=== PATIENT | male | born 1960 | race African-American/Black ===

== ENCOUNTER 2017-02-12 04:35 | Inpatient (IN) | payer SELFPAY ==
[~2017-02-12] VITALS: Ht 175.3 cm; Wt 118.0 kg
[2017-02-12] VITALS (17 sets, daily range): BP systolic 109–241; BP diastolic 59–124; PULSE 40–66; RESP 14–22; TEMP 97.6–98.2; O2SAT 93–100
[~2017-02-12 04:35] MED LIST: CIAL5TAB PO; LOSA25TA PO; NAPR500T PO; OMPR20CCR PO; PRED50 PO
[2017-02-12] MEDS ORDERED: ONDANSETRON HCL 4 MG/2 ML VIAL IV PUSH ONE (05:00)
[2017-02-12] MEDS ORDERED: SODIUM CHLORIDE 0.9% FLUSH 10 ML FLUSH IVF PRN (05:00)
[2017-02-12] MEDS ORDERED: MORPHINE SULFATE 4 MG/ML INJ IV PUSH ONE ×2 (05:00→06:00)
[2017-02-12] MEDS ORDERED: NITROGLYCERIN 2% OINT 1 GM PACKET TOP ONE (05:00)
[2017-02-12] MEDS: METOPROLOL TARTRATE 5 MG/5 ML VIAL IVS SCH ×3 (05:11→05:40)
--- NOTE | 2017-02-12 05:14 | PD ---
HPI . Chest pain Chief Complaint: Chest Pain Time Seen by Provider: 04:50 Travel History International Travel<30 days: No Contact w/Intl Traveler<30days: No Traveled to known affect area: No History of Present Illness HPI This patient presents with chief complaint of chest pain. Onset was 4 AM. He states it feels like torch in his chest which is radiating to his left arm. He states that it is associated with shortness of breath, nausea and dizziness. He states that it is a constant pain with no modifying factors. He initially rated his pain as 10/10. The patient reported that he had taken 2 BC powders at about 1 AM for a headache. The chest pain started 3 hours later. He reports a history of coronary artery disease and states that the pain in his chest is similar to the pain that he had in the past with coronary artery disease. PFSH Past Medical History Blood Disorders: No Heart Rhythm Problems: Yes (irregular beat ) Cancer: No Cardiac Catheterization: Yes Cardiovascular Problems: Yes (cath with stents 2013) High Cholesterol: No Chemotherapy: No Chest Pain: Yes (december 2013) Congestive Heart Failure: No Diabetes: No Diminished Hearing: No Endocrine: No Genitourinary: No Hypertension: Yes Immune Disorder: No Musculoskeletal: No Neurologic: No Psychiatric: No Reproductive: No Respiratory: No Myocardial Infarction: No Radiation Therapy: No Thyroid Disease: No PNEUMOCCOCAL Vaccine (Year): 2 ?: Not Past Surgical History Coronary Artery Bypass Graft: No Coronary Stent: Yes (x2 december 2013) Social History Alcohol Use: No (NONE SINCE MAY) Tobacco Use: No Substance Use: No Allergies-Medications (Allergen,Severity, Reaction): Coded Allergies: No Known Allergies (Verified , 02/12/17) Reported Meds & Prescriptions Reported Meds & Active Scripts Active Reported Viagra (Sildenafil Citrate) 25 Mg Tab 25 Mg PO DAILY PRN Losartan (Losartan Potassium) 100 Mg Tab 100 Mg PO DAILY Prilosec (Omeprazole Magnesium) 20 Mg Tab 1 Tab PO DAILY PRN Review of Systems Except as stated in HPI: all other systems reviewed are Neg HENT: Positive: Lightheadedness Cardiovascular: Positive: Chest Pain or Discomfort Respiratory: Positive: Shortness of Breath Gastrointestinal: Positive: Nausea Physical Exam Narrative GENERAL: Patient is tearful. SKIN: warm/dry. HEAD: Normocephalic. Atraumatic. EYES: Pupils equal and round. No scleral icterus. No injection or drainage. ENT: No nasal bleeding or discharge. Mucous membranes pink and moist. NECK: Trachea midline. Full range of motion without pain.. CARDIOVASCULAR: Regular rate and rhythm. Systolic ejection murmur. RESPIRATORY: No accessory muscle use. Clear to auscultation. Breath sounds equal bilaterally. GASTROINTESTINAL: Abdomen soft. Nontender. Bowel sounds present. Nondistended. MUSCULOSKELETAL: No obvious deformities. NEUROLOGICAL: Awake and alert. No obvious cranial nerve deficits. Motor grossly within normal limits. Normal speech. PSYCHIATRIC: Appropriate mood and affect; insight and judgment normal. Data Data Last Documented VS Vital Signs Date Time Temp Pulse Resp B/P (MAP) Pulse Ox O2 Delivery O2 Flow Rate FiO2 02/12/17 06:00 66 16 184/88 (120) 98 Room Air 02/12/17 04:37 98.2 Orders Orders Basic Metabolic Panel (Bmp) (02/12/17 04:51) Ckmb (Isoenzyme) Profile (02/12/17 04:51) Complete Blood Count With Diff (02/12/17 04:51) Magnesium (Mg) (02/12/17 04:51) Prothrombin Time / Inr (Pt) (02/12/17 04:51) Act Partial Throm Time (Ptt) (02/12/17 04:51) Troponin I (02/12/17 04:51) Chest, Single Ap (02/12/17 04:51) Ecg Monitoring (02/12/17 04:51) Iv Access Insert/Monitor (02/12/17 04:51) Oximetry (02/12/17 04:51) Morphine Inj (Morphine Inj) (02/12/17 05:00) Nitroglycerin 2% Oint (Nitroglycerin 2% (02/12/17 05:00) Sodium Chloride 0.9% Flush (Ns Flush) (02/12/17 05:00) Metoprolol Tartrate Inj (Lopressor Inj) (02/12/17 05:00) Ondansetron Inj (Zofran Inj) (02/12/17 05:00) Lipase (02/12/17 05:00) Morphine Inj (Morphine Inj) (02/12/17 06:00) CKMB (02/12/17 05:00) CKMB% (02/12/17 05:00) Admit Order (Ed Use Only) (02/12/17 06:34) Labs Laboratory Tests Test 02/12/17 05:00 White Blood Count 9.0 TH/MM3 Red Blood Count 4.73 MIL/MM3 Hemoglobin 15.3 GM/DL Hematocrit 44.4 % Mean Corpuscular Volume 93.9 FL Mean Corpuscular Hemoglobin 32.4 PG Mean Corpuscular Hemoglobin Concent 34.5 % Red Cell Distribution Width 13.5 % Platelet Count 237 TH/MM3 Mean Platelet Volume 7.7 FL Neutrophils (%) (Auto) 33.5 % Lymphocytes (%) (Auto) 50.1 % Monocytes (%) (Auto) 12.3 % Eosinophils (%) (Auto) 2.8 % Basophils (%) (Auto) 1.3 % Neutrophils # (Auto) 3.0 TH/MM3 Lymphocytes # (Auto) 4.5 TH/MM3 Monocytes # (Auto) 1.1 TH/MM3 Eosinophils # (Auto) 0.3 TH/MM3 Basophils # (Auto) 0.1 TH/MM3 CBC Comment DIFF FINAL Differential Comment Prothrombin Time 10.3 SEC Prothromb Time International Ratio 0.9 RATIO Activated Partial Thromboplast Time 23.7 SEC Blood Urea Nitrogen 9 MG/DL Creatinine 1.30 MG/DL Random Glucose 108 MG/DL Calcium Level 9.5 MG/DL Magnesium Level 2.2 MG/DL Sodium Level 137 MEQ/L Potassium Level 3.6 MEQ/L Chloride Level 104 MEQ/L Carbon Dioxide Level 26.4 MEQ/L Anion Gap 7 MEQ/L Estimat Glomerular Filtration Rate 69 ML/MIN Total Creatine Kinase 221 U/L Creatine Kinase MB 2.2 NG/ML Troponin I LESS THAN 0.02 NG/ML Lipase 469 U/L MDM Medical Decision Making Medical Screen Exam Complete: Yes Emergency Medical Condition: Yes Medical Record Reviewed: Yes (this patient is followed by the [facility]. He has a history of hypertension and coronary artery disease. He is status post stents to the RCA and LCx. He also has a history of pancreatitis. He had a negative stress test in 2014.) Interpretation(s) EKG shows a normal sinus rhythm. He has some nonspecific T-wave changes. No ST segment elevation or depression. Differential Diagnosis Differential diagnosis of chest pain includes but is not limited to musculoskeletal pain, pulmonary embolism, acute coronary syndrome, pneumonia, pleurisy Narrative Course This patient presents with the chief complaint of chest pain. He took BC powders at 1 AM. Therefore, aspirin has not been ordered. He is being treated with nitroglycerin, morphine and metoprolol. I anticipate eventual admission either to the family practice service or to the chest pain center. This patient has had 2 doses of morphine, 4 mg each. He reports very little relief of his pain. CBC & BMP Diagram 02/12/17 05:00 Calcium Level 9.5, Magnesium Level 2.2 Troponin < 0.02 Lipase 469 His lab work is suggestive of pancreatitis. This patient is followed by family practice. I will consult them for admission. Diagnosis Primary Impression: Chest pain Qualified Codes: R07.9 - Chest pain, unspecified Additional Impression: Pancreatitis Qualified Codes: K85.90 - Acute pancreatitis without necrosis or infection, unspecified Admitting Information Admitting Physician Requests: Admit Condition: Stable Camille Broussard MD Feb 12, 2017 05:14
[2017-02-12 05:34] LABS: BASOPHIL # 0.1 TH/MM3 (0-0.2); BASOPHIL % 1.3 % (0.0-2.0); EOSINOPHIL # 0.3 TH/MM3 (0-0.4); EOSINOPHIL % 2.8 % (0.0-4.0); HEMATOCRIT 44.4 % (39.0-51.0); HEMO FLAGS DIFF FINAL; LYMPH % 50.1 % (9.0-44.0); LYMPHOCYTE # 4.5 TH/MM3 (1.0-4.8); MEAN CELL VOLUME 93.9 FL (80.0-100.0); MEAN CORPUSCULAR HEMOGLOBIN 32.4 PG (27.0-34.0); MEAN CORPUSCULAR HGB CONC 34.5 % (32.0-36.0); MONO % 12.3 % (0.0-8.0); NEUT % 33.5 % (16.0-70.0); PLATELET COUNT 237 TH/MM3 (150-450); RED BLOOD COUNT 4.73 MIL/MM3 (4.50-5.90); RED CELL DISTRIBUTION WIDTH 13.5 % (11.6-17.2)
[2017-02-12] MEDS ORDERED: LOSA100T PO (05:35)
[2017-02-12] MEDS ORDERED: VIAG25TA PO (05:35)
[2017-02-12] MEDS ORDERED: PRIL20TA2 PO (05:35)
--- NOTE | 2017-02-12 05:37 | RADRPT ---
EXAM DATE/TIME: 02/12/2017 05:04 [facility] COMPARISON: CHEST SINGLE AP, July 18, 2014, 19:39. INDICATIONS : Chest pain. MEDICAL HISTORY : Hypertension. SURGICAL HISTORY : Coronary artery stent. ENCOUNTER: Initial ACUITY: 1 day PAIN SCORE: 10/10 LOCATION: Bilateral chest FINDINGS: Mild ill-defined infiltrate seen peripherally at the right mid lung and also at the left lung base. N o perceptible effusion. No pneumothorax. Heart size stable, upper limits of normal. CONCLUSION: Mild mid lung infiltrate on the right and basilar infiltrate on the left. Tony Castorena MD on February 12, 2017 at 5:34 Board Certified Radiologist. This report was verified electronically.
[2017-02-12 05:49] LABS: APTT (PATIENT) 23.7 SEC (24.3-30.1); INTERNATIONAL NORMALIZED RATIO 0.9 RATIO; PROTHROMBIN TIME - PATIENT 10.3 SEC (9.8-11.6)
[2017-02-12 06:09] LABS: ANION GAP 7 MEQ/L (5-15); BICARBONATE 26.4 MEQ/L (21.0-32.0); BLOOD UREA NITROGEN 9 MG/DL (7-18); CHLORIDE 104 MEQ/L (98-107); GLOMERULAR FILTRATION RATE 69 ML/MIN (>89); MAGNESIUM 2.2 MG/DL (1.5-2.5); POTASSIUM 3.6 MEQ/L (3.5-5.1); SODIUM (NA) 137 MEQ/L (136-145)
[2017-02-12 06:19] LABS: CREATINE KINASE 221 U/L (39-308)
[2017-02-12 06:32] LABS: CKMB 2.2 NG/ML (0.5-3.6)
[2017-02-12] MEDS ORDERED: NALOXONE HCL 0.4 MG/ML AMP IV PUSH PRN (07:30)
[2017-02-12] MEDS: SODIUM CHLOR 0.9% 1000 ML INJ 1,000 ML IV SCH ×3 (07:52→20:15)
[2017-02-12] MEDS: PANTOPRAZOLE SODIUM 40 MG VIAL IV PUSH SCH (07:52)
[2017-02-12] MEDS ORDERED: SODIUM CHLORIDE 0.9% FLUSH 10 ML FLUSH IV FLUSH PRN ×2 (08:00→17:00)
[2017-02-12] MEDS ORDERED: ONDANSETRON HCL 4 MG/2 ML VIAL IVP PRN (08:00)
[2017-02-12] MEDS ORDERED: HYDROmorphone HCL PF 1 MG/ML VIAL IV PUSH PRN (08:00)
[2017-02-12] MEDS ORDERED: AZITHROMYCIN 250 MG TAB PO ONE (08:00)
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
[2017-02-12] MEDS: SODIUM CHLORIDE 0.9% FLUSH 10 ML FLUSH IV FLUSH SCH ×2 (09:00→21:00)
[2017-02-12] MEDS: LOSARTAN 50 MG TAB PO SCH (09:00)
[2017-02-12] MEDS: DOCUSATE SODIUM 50 MG/SENNA 8.6 MG TAB PO SCH ×2 (09:11→21:24)
[2017-02-12] MEDS: cefTRIAXone INJ 1,000 MG in SODIUM CHLORIDE 0.9% INJ 100 ML IV SCH (09:14)
--- NOTE | 2017-02-12 12:07 | HHI.PR ---
Addendum to Inpatient Note Addendum Reason: Additional Documentation Additional Information RE-EVALUATION NOTE 56-year-old male with history of pancreatitis and CAD with drug-eluting stents placed in 2013 admitted this morning to our service after sudden onset chest pain. Symptoms he reports aside from chest pain including radiation to the arm, nausea, nonbloody/nonbilious vomiting 1. He recalls cardiac and pancreatic pains felt significantly different and this feels more like cardiac pain. He had a headache this morning and took 2 BC powders (aspirin). Last meal was yesterday evening, cereal. He was noted to have an EKG showing first-degree AV block without any obvious ST changes. He was noted to have hypertensive urgency. Troponin was 0.02. Initial workup included 4 mg IV morphine 2, Nitropaste, metoprolol 5 mg IV 1, Zofran. Home medication losartan 100 mg daily was last taken 02/11 per patient. Please see admission note for further details. Examination reveals regular rate and rhythm on auscultation. No JVD noted. Lungs are clear to auscultation. Abdomen is not obviously tender. No lower extremity edema. Patient has normal strength. He is alert and oriented 4. Upon admission he was noted to have right and left possible infiltrates on CXR and was started on CAP treatment. Cardiac enzymes pending. Patient reports symptomatic improvement after morphine. Will obtain ultrasound of the abdomen to rule out gallstones or other signs of pancreatitis. We will monitor cardiac enzymes. Plan is otherwise documented in admission note. Patient was seen and discussed with Dr. Stark (Ally Greenwood MD R2) Ally Greenwood MD R2 Feb 12, 2017 12:06 Camille Krueger MD Feb 12, 2017 17:48
[2017-02-12] MEDS: MORPHINE SULFATE 4 MG/ML INJ IV PUSH PRN ×2 (12:12→19:07)
[2017-02-12] MEDS ORDERED: NITROGLYCERIN 2% OINT 1 GM PACKET TOPICAL PRN (13:00)
--- NOTE | 2017-02-12 13:11 | RADRPT ---
EXAM DATE/TIME: 02/12/2017 12:08 [facility] COMPARISON: No previous studies available for comparison. INDICATIONS : Abdominal pain. MEDICAL HISTORY : Hypertension. Abdominal pain. SURGICAL HISTORY : Cardiac catheterization. Coronary stents. ENCOUNTER: Initial ACUITY: 1 day PAIN SCORE: 5/10 LOCATION: Right upper quadrant MEASUREMENTS: LIVER: 17.0 cm length COMMON DUCT: 5 mm RIGHT KIDNEY: 11.2 x 4.6 x 5.2 cm FINDINGS: LIVER: Normal echotexture without focal lesion or ductal dilatation. Hepatopedal flow in the portal vein. COMMON DUCT: No intraluminal mass or stone visualized. GALLBLADDER: Prominent air shadowing from the body of the gallbladder may represent one large or multiple moderate size stones. The area of shadowing measures 2.4 cm in greatest length. The anterior gallbladder wall is not thickened. No pericholecystic fluid. PANCREAS: The pancreatic duct in the head is prominent, measuring up to 5 mm. Echotexture in the visualized por tion of the head and body is fairly homogeneous for RIGHT KIDNEY: No evidence of hydronephrosis, stone, or mass. CONCLUSION: 1. Hepatomegaly without focal lesion. 2. Large gallstones. 3. Prominence of the pancreatic duct, measuring up to 5 mm. Ba Ryan MD on February 12, 2017 at 13:07 Board Certified Radiologist. This report was verified electronically.
[2017-02-12] MEDS ORDERED: LORazepam 1 MG TAB PO PRN (14:15)
[2017-02-12] MEDS ORDERED: FLUMAZENIL 0.5 MG/5 ML VIAL IV PUSH PRN (14:15)
[2017-02-12] MEDS ORDERED: LORazepam 2 MG/ML VIAL IV PUSH PRN ×4 (14:15)
[2017-02-12] MEDS ORDERED: LORazepam 2 MG TAB PO PRN (14:15)
--- NOTE | 2017-02-12 14:18 | EKG ---
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 DOCTOR: Sal Kitchen Interpretating Date/Time 02/12/2017 14:17:29
[2017-02-12 14:38] LABS: ALT (GPT) 14 U/L (12-78); AST (GOT) 48 U/L (15-37)
[2017-02-12 14:41] LABS: ALKALINE PHOSPHATASE 56 U/L (45-117); INDIRECT BILIRUBIN 0.3 MG/DL (0.0-0.8); TOTAL BILIRUBIN ADULT 0.4 MG/DL (0.2-1.0)
[2017-02-12 15:07] LABS: ALCOHOL LESS THAN 3 MG/DL (0-5)
--- NOTE | 2017-02-12 15:57 | PD.CONS ---
HPI History of Present Illness This is a 56 year old male with a history of coronary artery disease, who presented to the emergency room for evaluation of chest pain. This began suddenly around 4am this morning. He woke up with substernal pressure pain that radiated to his back and left shoulder. He also reports associated nausea , vomiting, and shortness of breath. He took two Goody Powders, but did not have any relief and therefore came to the ER for further evaluation. He denies any hematemesis, abdominal pain, fever, chills, weight loss, diarrhea, melena, or hematochezia. He does have a history of coronary artery disease. He reports that he has had pancreatitis twice in the past- both times he was told that it was related to alcohol. The last episode was about 2 years ago. He denies any hx of PUD or known gallbladder disease. He drinks about 2 alcoholic drinks per day. His last EGD/Colonoscopy was about [address] Linn. He had an US (02/12/17)---> hepatomegaly without focal lesion. Large gallstones. Prominence of the pancreatic duct, measuring up to 5mm. Lipase was mildly elevated at 469. LFTs are unremarkable other than elevated AST 48. Of note, his troponin went from < 0.02 to 15.0. The patient tells me that his pain was constant until he received Morphine in the ER and now it has completely resolved. (Emili Clements) PFSH Past Medical History CAD Pancreatitis x 2 HTN Past Surgical History EGD/Colonoscopy Cardiac catheterization Meniscectomy (Emili Clements) Coded Allergies: No Known Allergies (Verified , 02/12/17) Medications Allergies Coded Allergies Type Severity Reaction Last Updated Verified No Known Allergies 02/12/17 Yes Active Scripts Medications Dose Route/Sig Max Daily Dose Days Date Category Viagra (Sildenafil Citrate) 25 Mg Tab 25 Mg PO DAILY PRN 02/12/17 Reported Losartan (Losartan Potassium) 100 Mg Tab 100 Mg PO DAILY 02/12/17 Reported Prilosec (Omeprazole Magnesium) 20 Mg Tab 1 Tab PO DAILY PRN 02/12/17 Reported Family History Father from [place], Emphysema Mother from Breast Cancer, had dm Social History Smokes cigars Drinks 2 beers per day No illicit drug use. (Emili Clements) Review of Systems Constitutional: COMPLAINS OF: Fatigue, DENIES: Fever, Weight loss, Chills Respiratory: COMPLAINS OF: Shortness of breath, DENIES: Cough Cardiovascular: COMPLAINS OF: Chest pain Gastrointestinal: COMPLAINS OF: Nausea, Vomiting, DENIES: Abdominal pain, Black stools, Bloody stools, Constipation, Diarrhea, Heartburn, Hematemesis Musculoskeletal: COMPLAINS OF: Back pain, DENIES: Joint pain Integumentary: DENIES: Abnormal pigmentation Hematologic/lymphatic: DENIES: Bruising Neurologic: DENIES: Headache Psychiatric: DENIES: Confusion (Emili Clements) GI Exam Vitals I&O Vital Signs Date Time Temp Pulse Resp B/P (MAP) Pulse Ox O2 Delivery O2 Flow Rate FiO2 02/12/17 14:04 55 02/12/17 13:08 02/12/17 09:09 57 18 116/68 (84) 96 Room Air 02/12/17 07:10 46 22 128/67 (87) 97 Room Air 02/12/17 07:00 50 15 128/67 (87) 98 Room Air 02/12/17 06:00 66 16 184/88 (120) 98 Room Air 02/12/17 05:40 61 14 165/87 (113) 98 Room Air 02/12/17 05:30 62 14 202/99 (133) 98 Room Air 02/12/17 05:20 61 14 200/92 (128) 100 02/12/17 05:00 58 15 200/98 (132) 100 Room Air 02/12/17 04:50 66 20 201/99 (133) 100 Room Air 02/12/17 04:45 62 100 Room Air 02/12/17 04:37 98.2 62 18 241/124 (163) 95 Room Air I/O 02/11/17 02/11/17 02/11/17 02/12/17 02/12/17 02/12/17 07:00 15:00 23:00 07:00 15:00 23:00 Intake Total 1100 ml Output Total 400 ml Balance 700 ml Intake IV Total 1100 ml Output Urine Total 400 ml # Voids 1 Laboratory Test 02/12/17 05:00 02/12/17 14:09 White Blood Count 9.0 TH/MM3 Red Blood Count 4.73 MIL/MM3 Hemoglobin 15.3 GM/DL Hematocrit 44.4 % Mean Corpuscular Volume 93.9 FL Mean Corpuscular Hemoglobin 32.4 PG Mean Corpuscular Hemoglobin Concent 34.5 % Red Cell Distribution Width 13.5 % Platelet Count 237 TH/MM3 Mean Platelet Volume 7.7 FL Neutrophils (%) (Auto) 33.5 % Lymphocytes (%) (Auto) 50.1 % Monocytes (%) (Auto) 12.3 % Eosinophils (%) (Auto) 2.8 % Basophils (%) (Auto) 1.3 % Neutrophils # (Auto) 3.0 TH/MM3 Lymphocytes # (Auto) 4.5 TH/MM3 Monocytes # (Auto) 1.1 TH/MM3 Eosinophils # (Auto) 0.3 TH/MM3 Basophils # (Auto) 0.1 TH/MM3 CBC Comment DIFF FINAL Differential Comment Prothrombin Time 10.3 SEC Prothromb Time International Ratio 0.9 RATIO Activated Partial Thromboplast Time 23.7 SEC Blood Urea Nitrogen 9 MG/DL Creatinine 1.30 MG/DL Random Glucose 108 MG/DL Calcium Level 9.5 MG/DL Magnesium Level 2.2 MG/DL Sodium Level 137 MEQ/L Potassium Level 3.6 MEQ/L Chloride Level 104 MEQ/L Carbon Dioxide Level 26.4 MEQ/L Anion Gap 7 MEQ/L Estimat Glomerular Filtration Rate 69 ML/MIN Total Creatine Kinase 221 U/L Creatine Kinase MB 2.2 NG/ML Troponin I LESS THAN 0.02 NG/ML 15.00 NG/ML B-Type Natriuretic Peptide LESS THAN 2 PG/ML Lipase 469 U/L Total Bilirubin 0.4 MG/DL Direct Bilirubin 0.1 MG/DL Indirect Bilirubin 0.3 MG/DL Aspartate Amino Transf (AST/SGOT) 48 U/L Alanine Aminotransferase (ALT/SGPT) 14 U/L Alkaline Phosphatase 56 U/L Total Protein 7.0 GM/DL Albumin 3.3 GM/DL Ethyl Alcohol Level LESS THAN 3 MG/DL Physical Examination HEENT: Pupils round and reactive to light; normocephalic; atraumatic; no jaundice. Throat is clear. NECK: Neck is supple, no JVD, no lymphadenopathy. CHEST: Chest is clear to auscultation and percussion. CARDIAC: Regular rate and rhythm with no murmur gallop or rubs. ABDOMEN: Soft, nondistended, nontender; no hepatosplenomegaly; bowel sounds are present in all four quadrants. EXTREMITIES: No clubbing, cyanosis, or edema. SKIN: Normal; no rash; no jaundice. 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 (Emili ClementsP) Assessment and Plan Plan ASSESSMENT: - NSTEMI, Chest pain, Hx CAD. Pt with hx of CAD, presented with chest pain. No relief with 2 Goody ASA. States his pain completely resolved after Morphine. Original troponin 0.02, repeat 15.0. Cardiology consulted. - N/V. GI was consulted for chest pain, n/v, elevated lipase, suspected pancreatitis. Pt has hx of pancreatitis x 2 r/t ETOH use. Pt reports that he was awakened with substernal chest pressure with associated n/v and sob. no abdominal pain, no diarrhea. Lipase was mildly elevated 469. US (02/12/17 )---> hepatomegaly without focal lesion. Large gallstones. Prominence of the pancreatic duct, measuring up to 5mm. Lipase was mildly elevated at 469. LFTs are unremarkable other than elevated AST 48. Of note, his troponin went from < 0.02 to 15.0. Its likely that his nausea and vomiting were related to NSTEMI and that his mildly elevated lipase could be related to n/v. Was going to get CT scan with pancreatic protocol to evaluate for pancreatitis, but given the sudden jump in troponin, we will hold in case cardiology plans to take him to the [facility], his creat is 1.30. - Elevated lipase, undetermined significance. US as above. No abdominal pain. CP/N,V resolved after Morphine. Will recheck in am. Okay for clears from GI standpoint - HTN per attending. PLAN: - Okay for clears from GI standpoint, would hold until patient seen by cardiology - Protonix 40mg IV daily - CBC, Lipase, LFT in am - Supportive care - It seems that the patient developed substernal chest pressure with associated n/v, sob at the same time. His symptoms resolved after Morphine. Given the sudden increase in his troponin, it is likely that his symptoms are most likely of cardiac etiology. Will hold on CT scan abdomen and pelvis, in case he needs cardiac cath (Creat 1.30). Will recheck labs in am and make further recommendations at that time. - Pt seen and examined by Dr. Mcbride and myself and this note is written on his behalf (Emili Clements) Physician Comments seen, examined agree with above mrcp once cleared by cardiology monitor lfts, lipase (Annia Mcbride MD) Emili Clements Feb 12, 2017 15:57 Annia Mcbride MD Feb 12, 2017 18:20
--- NOTE | 2017-02-12 16:30 | HHI.PR ---
Addendum to Inpatient Note Addendum Reason: Corrected Documentation Additional Information Addendum Patient was found to have an elevated troponin of 15. Patient is also noted to have 16 beat run of V. tach within last 2 hours. Patient was asymptomatic and resting at that time. He continues to be asymptomatic and resting. He denies chest pain at this time. He denies shortness of breath, headache, nausea, vomiting, back pain. EKG was ordered stat verbally to the nurse, who completed this. The EKG shows sinus bradycardia, rate 49, first-degree AV block, T-wave inversions in the lateral leads. On-call fire engineer was called who recommended discussion of case with patient' s fire engineer Dr. Jake Crowley. Dr. Jake Crowley was notified and case was reviewed with him. He states that Dr. Kimball will see the patient and make further recommendations. I also spoke with Geoff Clements who has also evaluated the patient, recommend a CT of the abdomen/pelvis once workup is complete. Repeat troponin and CK-MB pending stat. Patient is to remain nothing by mouth until further evaluation. ADDENDUM 1656: I spoke with Dr. Kimball regarding patient management. Case was reviewed. Recommended initiating heparin drip, beta precious until further evaluation. UDS is pending, will initiate beta precious once complete and no evident of cocaine use. Discussed with Dr. Krueger (Ally Greenwood MD R2) Ally Greenwood MD R2 Feb 12, 2017 16:30 Camille Krueger MD Feb 12, 2017 17:57
[2017-02-12] MEDS ORDERED: HEPARIN-D5W 25,000 U/250 ML 250 ML IV PRN (17:00)
[2017-02-12] MEDS ORDERED: HEPARIN SODIUM - IV 10,000 UNITS/10 ML VIAL IV PUSH ONE (17:00)
[2017-02-12 17:07] LABS: BLOOD, URINE NEG (NEG); GLUCOSE,URINE NEG (NEG); KETONE, URINE NEG (NEG); NITRITE,URINE NEG (NEG); PH, URINE 5.5 (5.0-8.5); URINE COLOR YELLOW (YELLW/STRAW)
[2017-02-12 17:12] LABS: COMMENT (UR) CULT NOT INDICATED; CULTURE IF INDICATED CULT NOT INDICATED
[2017-02-12 17:40] LABS: HEMATOCRIT 40.2 % (39.0-51.0); MEAN CELL VOLUME 94.7 FL (80.0-100.0); MEAN CORPUSCULAR HEMOGLOBIN 32.2 PG (27.0-34.0); PLATELET COUNT 204 TH/MM3 (150-450); RED BLOOD COUNT 4.25 MIL/MM3 (4.50-5.90); RED CELL DISTRIBUTION WIDTH 13.7 % (11.6-17.2); REVIEW FLAG FINAL; WHITE BLOOD COUNT 7.5 TH/MM3 (4.0-11.0)
[2017-02-12 17:58] LABS: APTT (PATIENT) 28.2 SEC (24.3-30.1); PROTHROMBIN TIME - PATIENT 11.3 SEC (9.8-11.6)
--- NOTE | 2017-02-12 18:02 | HHI.FPPN ---
Subjective Subjective Patient seen and examined. Case reviewed and discussed Please refer to resident H&P for further details regarding HPI, ROS, PMH, SurgHX , Fh and SocHx All systems reviewed and neg except as stated in HPI In summary, patient is a 56yoM with a history of CAD s/p stent placement in 2013 , known to Dr. Crowley presenting with chest pain and pressure. He reports around 4am the pressure started, radiating to his L arm and neck similar to prior angina pain. He is seen in his hospital room with at his bedside. +Assoc nausea, no shortness of breath. Pain improved with NG and morphine, still having mild chest pressure at time of my encounter. [facility] Objective Objective Last Impressions Chest X-Ray 02/12/17 0451 Signed Impressions: Service Date/Time: , February 12, 2017 05:04 - CONCLUSION: Mild mid lung infiltrate on the right and basilar infiltrate on the left. Tony Castorena MD Gall Bladder Ultrasound 02/12/17 0000 Signed Impressions: Service Date/Time: , February 12, 2017 12:08 - CONCLUSION: 1. Hepatomegaly without focal lesion. 2. Large gallstones. 3. Prominence of the pancreatic duct, measuring up to 5 mm. Ba Ryan MD Laboratory Tests - Abnormals Test 02/12/17 05:00 02/12/17 14:09 02/12/17 16:10 02/12/17 17:30 Lymphocytes (%) (Auto) 50.1 % Monocytes (%) (Auto) 12.3 % Monocytes # (Auto) 1.1 TH/MM3 Activated Partial Thromboplast Time 23.7 SEC Random Glucose 108 MG/DL Estimat Glomerular Filtration Rate 69 ML/MIN Troponin I LESS THAN 0.02 NG/ML 15.00 NG/ML Lipase 469 U/L Aspartate Amino Transf (AST/SGOT) 48 U/L Albumin 3.3 GM/DL Urine Opiates Screen POS Red Blood Count 4.25 MIL/MM3 Vital Signs 02/12/17 02/12/17 02/12/17 02/12/17 04:37 04:45 04:50 05:00 Temp 98.2 Pulse 62 62 66 58 Resp 18 20 15 B/P (MAP) 241/124 (163) 201/99 (133) 200/98 (132) Pulse Ox 95 100 100 100 O2 Delivery Room Air Room Air Room Air Room Air 02/12/17 02/12/17 02/12/17 02/12/17 05:20 05:30 05:40 06:00 Pulse 61 62 61 66 Resp 14 14 14 16 B/P (MAP) 200/92 (128) 202/99 (133) 165/87 (113) 184/88 (120) Pulse Ox 100 98 98 98 O2 Delivery Room Air Room Air Room Air 02/12/17 02/12/17 02/12/17 02/12/17 07:00 07:10 09:09 13:08 Pulse 50 46 57 Resp 15 22 18 B/P (MAP) 128/67 (87) 128/67 (87) 116/68 (84) Pulse Ox 98 97 96 O2 Delivery Room Air Room Air Room Air 02/12/17 02/12/17 02/12/17 14:04 14:30 16:00 Temp 97.7 97.6 Pulse 55 53 56 Resp 16 18 B/P (MAP) 109/59 (76) 122/69 (86) Pulse Ox 98 93 INTAKE & OUTPUT 02/13/17 07:00 Intake Total 1100 ml Output Total 400 ml Balance 700 ml Physical exam GENERAL: wdwn male, resting in bed SKIN: Warm and dry. HEAD: Normocephalic. AT EYES: No scleral icterus. No injection or drainage. ENT: OP clear. MMM NECK: Supple, trachea midline. No JVD or lymphadenopathy. CARDIOVASCULAR: Bradycardic rate and reg rhythm without audible murmurs, gallops , or rubs. RESPIRATORY: Breath sounds equal and clear bilaterally. No accessory muscle use. GASTROINTESTINAL: Abdomen soft, TTP over epigastrium, nondistended. Normal active BS. No rebound MUSCULOSKELETAL: No cyanosis, or edema. no calf tenderness. BACK: Nontender without obvious deformity. No CVA tenderness. NEURO: Awake and alert. Normal speech. CN grossly intact. Assessment Assessment 56yoM admitted with: NSTEMI Chest pain CAP HTN HL/CAD s/p stent x 2 Hx tobacco dependence Alcohol dependence Elevated AST Acute on Chronic pancreatitis PLAN PLAN Serial CE, ekg NG ASA Morphine titrated to chest pain Oxygen BB Statin Cardiology consulted, appreciate Dr. Kimball Heparin gtt Empiric antibiotics for CAP Sputum culture Legionella, pneumococcal antigen UDS GI consulted for dilated pancreatic duct Resume home meds as appropriate Patient seen and examined. Case reviewed and discussed Agree with plan of care as discussed with me and documented in the resident note. Camille Krueger MD Feb 12, 2017 18:02
[2017-02-12 18:09] LABS: INDIRECT BILIRUBIN 0.3 MG/DL (0.0-0.8); TOTAL BILIRUBIN ADULT 0.4 MG/DL (0.2-1.0)
[2017-02-12 18:38] LABS: CKMB 35.6 NG/ML (0.5-3.6)
[2017-02-12] MEDS ORDERED: TIROFIBAN BOLUS IV ONE (19:00)
--- NOTE | 2017-02-12 20:24 | MB ---
cc: LIBERTAD POPE MD DATE OF CONSULTATION 02/12/17 HISTORY OF PRESENT ILLNESS Mr. Jacob is a very pleasant 56-year-old black male with history of coronary artery disease and right coronary and left circumflex artery stenting [place] [address] Crowley. He also has history of chronic pancreatitis and hypertension. At 9:00 this morning, he started to develop headache and subsequently substernal chest discomfort radiating to the left arm and was increased with deep inspiration. He presented to the emergency room and pain was relieved with morphine. There was no difference with nitroglycerin. The patient had one episode of vomiting. Initial exam was normal, but subsequently his troponin increased to 15. This is being repeated for confirmation. He currently denies any chest pain or shortness of breath and he is resting comfortably. PAST MEDICAL HISTORY 1. multivessel coronary disease, RCA and left circumflex artery stenting in 2013, 2. Hypertension, 3. Chronic pancreatitis. 4. History of hypertension, 5. Dyslipidemia. 6. No history of diabetes mellitus, 7. History of knee surgery to 2014 MEDICATIONS 1. Zantac. 2. Losartan 3. Omeprazole 4. Lortab 5. Viagra ALLERGIES None. SOCIAL HISTORY The patient smokes cigars. He drinks two drinks a day. FAMILY HISTORY Positive for heart disease in his father and also in his son. He just had myocardial function and coronary stenting two days ago. REVIEW OF SYSTEMS Otherwise negative. PHYSICAL EXAMINATION VITAL SIGNS: Blood pressure 122/69, pulse 56 and irregular. HEENT: Negative. 2+ carotid upstrokes. No bruits. LUNGS: Clear. HEART: Regular with no murmur, gallop or rub. ABDOMEN: Soft, no bruits. EXTREMITIES: Without edema. 2+ distal pulses NEUROLOGIC: Grossly nonfocal. CARDIOLOGY STUDIES EKG was reviewed and showed normal sinus rhythm, normal axis intervals, nonspecific T-wave changes. LABORATORY DATA Hemoglobin 13.7, potassium 3.6, creatinine 1.3, CK 221, 383, troponin 0.02, 15 and 20.7. DIAGNOSES 1. Recent non-ST elevation myocardial function. 2. Coronary artery disease, history of multivessel stenting. 3. Hypertension 4. Dyslipidemia. DISPOSITION Mr. Jacob will be treated for a non ST elevation myocardial infarction with heparin, Aggrastat, beta precious aspirin and statin. He will be scheduled for a cardiac catheterization tomorrow to evaluate his pulmonary catheterization and possible coronary intervention if necessary tomorrow. He is currently asymptomatic and will be transferred to [facility] for further management. MD DAVID Orellana/ /6:38 PM /8:07 PM
[2017-02-12] MEDS: CARVEDILOL 3.125 MG TAB PO SCH (21:00)
[2017-02-12] MEDS ORDERED: SODIUM CHLORIDE 0.9% FLUSH 10 ML FLUSH IV FLUSH SCH (21:00)
[2017-02-12] MEDS: ATORVASTATIN 80 MG TAB PO SCH (21:22)
[2017-02-12] MEDS: TIROFIBAN INFUSION INJ 250 ML IV SCH (21:42)
[2017-02-12] MEDS ORDERED: HEPARIN SODIUM - IV 10,000 UNITS/10 ML VIAL IV PUSH PRN ×2 (23:00)
[2017-02-12 23:10] LABS: AUTOMATED NEUTROPHIL # 4.9 TH/MM3 (1.8-7.7); BASOPHIL # 0.1 TH/MM3 (0-0.2); BASOPHIL % 0.7 % (0.0-2.0); EOSINOPHIL # 0.1 TH/MM3 (0-0.4); EOSINOPHIL % 1.5 % (0.0-4.0); HEMATOCRIT 38.8 % (39.0-51.0); HEMO FLAGS DIFF FINAL; LYMPH % 39.1 % (9.0-44.0); LYMPHOCYTE # 3.9 TH/MM3 (1.0-4.8); MEAN CELL VOLUME 93.9 FL (80.0-100.0); MEAN CORPUSCULAR HEMOGLOBIN 31.7 PG (27.0-34.0); MEAN CORPUSCULAR HGB CONC 33.8 % (32.0-36.0); MONO % 10.1 % (0.0-8.0); NEUT % 48.6 % (16.0-70.0); PLATELET COUNT 197 TH/MM3 (150-450); RED BLOOD COUNT 4.13 MIL/MM3 (4.50-5.90); RED CELL DISTRIBUTION WIDTH 13.8 % (11.6-17.2)
[2017-02-12 23:19] LABS: APTT (PATIENT) 61.2 SEC (24.3-30.1)
[2017-02-13] VITALS (18 sets, daily range): BP systolic 142–180; BP diastolic 81–106; PULSE 44–82; RESP 16–18; TEMP 97.4–98.9; O2SAT 97–100
[2017-02-13] MEDS: MORPHINE SULFATE 4 MG/ML INJ IV PUSH PRN ×5 (04:24→20:56)
[2017-02-13 06:15] LABS: AUTOMATED NEUTROPHIL # 4.3 TH/MM3 (1.8-7.7); BASOPHIL # 0.1 TH/MM3 (0-0.2); BASOPHIL % 1.3 % (0.0-2.0); EOSINOPHIL # 0.2 TH/MM3 (0-0.4); EOSINOPHIL % 2.5 % (0.0-4.0); HEMATOCRIT 37.9 % (39.0-51.0); HEMO FLAGS DIFF FINAL; LYMPH % 31.7 % (9.0-44.0); LYMPHOCYTE # 2.6 TH/MM3 (1.0-4.8); MEAN CELL VOLUME 93.8 FL (80.0-100.0); MEAN CORPUSCULAR HGB CONC 34.1 % (32.0-36.0); MONO % 12.3 % (0.0-8.0); NEUT % 52.2 % (16.0-70.0); PLATELET COUNT 197 TH/MM3 (150-450); RED BLOOD COUNT 4.05 MIL/MM3 (4.50-5.90); RED CELL DISTRIBUTION WIDTH 13.5 % (11.6-17.2); WHITE BLOOD COUNT 8.2 TH/MM3 (4.0-11.0)
[2017-02-13 06:25] LABS: APTT (PATIENT) 55.6 SEC (24.3-30.1)
[2017-02-13 06:38] LABS: ANION GAP 7 MEQ/L (5-15); AST (GOT) 47 U/L (15-37); BICARBONATE 25.1 MEQ/L (21.0-32.0); BLOOD UREA NITROGEN 10 MG/DL (7-18); CHLORIDE 109 MEQ/L (98-107); GLOMERULAR FILTRATION RATE 74 ML/MIN (>89); POTASSIUM 3.8 MEQ/L (3.5-5.1); SODIUM (NA) 141 MEQ/L (136-145)
[2017-02-13 06:40] LABS: ALT (GPT) 12 U/L (12-78)
[2017-02-13 06:41] LABS: ALKALINE PHOSPHATASE 56 U/L (45-117); TOTAL BILIRUBIN ADULT 0.3 MG/DL (0.2-1.0)
[2017-02-13] MEDS ORDERED: HEPARIN-NS/PF INJ 500 ML ONE (09:39)
[2017-02-13] MEDS ORDERED: MIDAZOLAM HCL 5 MG/5 ML VIAL ONE (09:42)
[2017-02-13] MEDS ORDERED: HEPARIN SODIUM - IV 10,000 UNITS/10 ML VIAL ONE (10:24)
[2017-02-13] MEDS ORDERED: TIROFIBAN INFUSION INJ 250 ML IV ONE (11:06)
[2017-02-13] MEDS ORDERED: TICAGRELOR 90 MG TAB PO ONE (11:06)
--- NOTE | 2017-02-13 11:20 | CATHPROC ---
[employer] HIS Report Study Information Study Number Admission Scheduled Start Study Start [id number] Feb 12 2017 6:38AM 02/13/2017 Feb 13 2017 9:22AM [facility] Cardiac Catheterization Admit Source Facility Department Emergency department [facility] - Senior Designer/Art Director Physician and Clinical Staff Initial Rosalinda Gallegos Manager Tax Hermilo Pineda,ANG Other cathlab, cathlab Recorder Zain Jorgensen RCIS(BS) Scrub Ayesha Santana,RT(R) (BS) Procedures Performed Procedure Location (Site) Vessel Name Angiogram LV LV Ventricle Coronary Angiograms LCA Left Coronary Coronary Angiograms RCA Right Coronary Drug Eluting Inflatio PDA Prox Right Coronary Drug Eluting Inflatio RCA Mid Right Coronary L Heart Cath PTCA PDA Prox Right Coronary PTCA RCA Mid Right Coronary R Heart Cath Wire insertion Fem Art (right) Femoral Art Equipment Time Supervisor Agency Appointments Description Size Mfg Part Number Used/Scraped WIRE, BALANCE MIDDLEWEIGHT [id number] 10:25 [employer] 190CM Used 190CM (LEXX) *[id number] TRANSDUCER, TRUWAVE [id number] 09:29 [place] ZIMMERMAN * Used W/STOCKCOCK *[id number] *[id number] [id number] *[id number] 534-520T *[id number] [id number] *[id number] 11:10 DAIG/[employer]. BRITTANY MEDICAL ANGIOSEAL, FR6 VIP FR 6 Used *[id number] 09:29 [employer] INDUSTRIES PACK, CCL CUSTOM * Used *[id number] 09:29 [employer] PACER PEN, SKIN DUAL W/ RULER * Used *[id number] 10:38 MEDTR[employer] BALLOON, 2.0 X 10MM EUPHORA 10MM Used *[id number] 10:53 [employer] STENT, 2.25 12MM GAY 2.25 12MM Used *[id number] 10:47 [employer]TR[employer] STENT, 2.25 8MM GAY 2.25 8MM Used *[id number] 10:59 [employer]TRONIC STENT, 2.5 34MM GAY 2.5 34MM Used *[id number] 10:25 [employer] MEDICAL 30 NOHEMI INDEFLATOR Used *[id number] 10:26 [employer] SHEATH, FR6.5 PRELUDE 11CM FR 6.5 038ACT Used *[id number] 09:29 [employer] MEDICAL WIRE, 3MMJ .035 180CM 180CM Used *[id number] PROBE COVER, STERILE [id number] 09:29 [employer] MED[employer] * Used ULTRASOUND W/ GEL *[id number] [id number] 09:29 NAMIC MANIFOLD, 4 PORT * Used *[id number] [id number] 09:52 NAMIC TUBING, HIGH PRESSURE 48" 48" Used *[id number] 09:29 NAMIC TUBING, HIGH PRESSURE 48" 48" Used *[id number] 09:29 [employer]COMED OMNIPAQUE, 350 MG, 150ML 150ML [id number] Used 10:07 [employer]COMED OMNIPAQUE, 350 MG, 50ML 50ML [id number] Used [id number] 09:29 [employer] BLANKET,WARM AIR CCL * Used *[id number] [id number] 09:29 TERUM[employer] MEDICAL SHEATH, FR5 TERUMO (10CM) FR 5 Used *[id number] Equipment Model, Serial, Lot Number and Expiration Data Description Model Number Serial Number Lot Number Expiration Date STENT, 2.25 12MM GAY [id number] 11-04-2018 STENT, 2.25 8MM GAY [id number] 09-23-2018 STENT, 2.5 34MM GAY [id number] 12-01-2018 History: Allergies Allergy Reaction No Known Allergies History: Risk Factors Family History of Hypertension Dyslipidemia Previous NV Previous Heart Failure Premature CAD Yes Yes Yes No No Prior Valve Prior PCI Prior PCIDate Prior CABG Surgery No Yes 05/11/2013 No Cerebrovascular Peripheral Artery Chronic Lung On Dialysis Diabetes Disease Disease Disease No No No No No History: Symptoms/Diagnosis Selection Items Chest pain History: Stress Tests Stress or Imaging Studies Performed No History: Other Disease Selection Items HTN History: NV/CV Data Previous Cath Date 05/11/2013 History: Other Current Smoker Method Quit Packs a Day Years Used Pack Years No Cigarettes 10 Years Ago 1 20 20 Labs Hgb (g/dl) Hct (%) WBC (l/cumm) Platelets (thousands) 11.60-17.00 35.00-51.00 4.00-11.00 150.00-450.00 12.9 37.9 8.2 0.9 Glucose (mg/dl) BUN (mg/dl) Creatinine (mg/dl) BUN:Creatinine (1:x) 74.00-106.00 7.00-18.00 0.50-1.30 10.00-20.00 91 16 1.2 13.3 Na (meq/l) K (meq/l) 136.00-145.00 3.50-5.10 141 3.8 INR (PTT:PT) 0.90-1.10 1 Troponin I (ng/ml) CPK (u/l) CPK-MB (ng/ML) 0.02-0.05 26.00-308.00 0.50-3.60 20.7 383 Not Drawn Medication Medication Total Dose (Bolus/Oral) Medication Total Dosage/Unit 1% XYLOCAINE 20 mL FENTANYL 100 mcg HEPARIN 7000 units NTG (IC) 600 mcg VERSED 4 mg Medications (Bolus/Oral) Medication Time Given Dosage/Unit Administered By Reason VERSED 02/13/2017 9:56:14 AM 1 mg Hermilo Pineda 1 mg VERSED given in lab by Hermilo Pineda RN in Right Hand via Peripheral IV. Ordered by Tino Kimball. FENTANYL 02/13/2017 9:56:21 AM 25 mcg Hermilo Pineda 25 mcg FENTANYL given in lab by Hermilo Pineda RN in Right Hand via Peripheral IV. Ordered by Rosalinda Monteiro. VERSED 02/13/2017 10:02:30 AM 1 mg Hermilo Pineda 1 mg VERSED given in lab by Hermilo Pineda RN in Right Hand via Peripheral IV. Ordered by Tino Kimball. 1% XYLOCAINE 02/13/2017 10:02:36 AM 20 mL Rosalinda Kimball 20 mL 1% XYLOCAINE given in lab by Rosalinda Kimball in Right Groin via Subcutaneous. FENTANYL 02/13/2017 10:02:51 AM 25 mcg Hermilo Pineda 25 mcg FENTANYL given in lab by Hermilo Pineda RN in Right Hand via Peripheral IV. Ordered by Rosalinda Monteiro. HEPARIN 02/13/2017 10:28:34 AM 7000 units Hermilo Pineda 7000 units HEPARIN given in lab by Hermilo Pineda RN in Right Hand via Peripheral IV. Ordered by Rosalinda Solares. NTG (IC) 02/13/2017 10:34:43 AM 200 mcg Ayesha Santana 200 mcg NTG (IC) given in lab by Ayesha Santana RT(R) (BS) via Intra-coronary. Ordered by Rosalinda Kimball. NTG (IC) 02/13/2017 10:42:37 AM 200 mcg Lavell Santanaanine 200 mcg NTG (IC) given in lab by Ayesha Santana RT(R) (BS) via Intra-coronary. Ordered by Rosalinda Kimball. VERSED 02/13/2017 10:58:23 AM 1 mg Ferlitto Hermilo 1 mg VERSED given in lab by Hermilo Pineda RN in Right Hand via Peripheral IV. Ordered by Tino Kimball. FENTANYL 02/13/2017 10:58:26 AM 25 mcg FerlidanaeoAnaey 25 mcg FENTANYL given in lab by Hermilo Pineda RN in Right Hand via Peripheral IV. Ordered by Rosalinda Monteiro. NTG (IC) 02/13/2017 11:03:36 AM 200 mcg Ayesha Santana 200 mcg NTG (IC) given in lab by Ayesha Santana RT(Josseline) (BS) via Intra-coronary. Ordered by Rosalinda Kimball. VERSED 02/13/2017 11:08:01 AM 1 mg Ferlitto Hermilo 1 mg VERSED given in lab by Hermilo Pineda RN in Right Hand via Peripheral IV. Ordered by Tino Kimball. FENTANYL 02/13/2017 11:08:03 AM 25 mcg Ferlitto Hermilo 25 mcg FENTANYL given in lab by Hermilo Pineda RN in Right Hand via Peripheral IV. Ordered by Rosalinda Monteiro. Medication (Drip) Medication Time Given Dosage/Unit Concentration/Unit Diluent (ml) Solution AGGRASTAT DRIP 02/13/2017 9:29:49 AM 0.078 mcg/kg/min 12.5 mg 250 NaCl .9 Patient arrived on 0.078 mcg/kg/min AGGRASTAT DRIP in Right Hand via Peripheral IV. Pump/Drip Flow = 10 ml/hr using NaCl .9 with a concentration of 12.5 mg in 250 ml. Ordered by Rosalinda Kimball. Initial Case Assessment Cardiovascular HR Rhythm NIBP Chest Pain 58 nsr 160/105 0 Edema Present Skin color Skin None Normal Warm Dry Circulatory - Right Pulses Dorsalis Pedis Femoral 2 2 Scale (0,1,2,3,4,d) Circulatory - Left Pulses Dorsalis Pedis Femoral 2 2 Scale (0,1,2,3,4,d) Neurological State Oriented to time-place- Alert Moves all extremities person Respiration - General Respiration Rate SpO2 (%) (B/min) 15 97 Final Case Assessment Cardiovascular HR Rhythm NIBP Chest Pain 60 nsr 149/97 0 Edema Present Skin color Skin None Normal Warm Dry Circulatory - Right Pulses Dorsalis Pedis Femoral 2 2 Scale (0,1,2,3,4,d) Circulatory - Left Pulses Dorsalis Pedis Femoral 2 2 Scale (0,1,2,3,4,d) Neurological State Oriented to time-place- Alert Moves all extremities person Respiration - General Respiration Rate SpO2 (%) (B/min) 15 97 Chronological Log Time Study Chronological Log 9:29:33 Patient arrived via Bed. 9:29:34 Patient Name, D.O.B, / Armband Verified By R.N. 9:29:34 Consent signed by the physician and the patient and verified by the Senior Designer/Art Director staff. 9:29:35 Pre-op and post- op instructions given; patient acknowledges understanding of instructions. 9:29:35 Verbal Stimulation=2 Physical Stimulation=2 Airway=2 Respiration=2 TOTAL=8. (0=absent, 1=li mited, 2=present) 9:29:37 Presedation assessment performed by Senior Designer/Art Director RN. 9:29:43 Immediate Presedation assesment performed by physician. 9:29:43 Patient has been NPO for More than 6Hrs. 9:29:45 Skin Breakdown- none per patient 9:29:45 Patient Warmer Placed on the Table. 9:29:46 Hoa Prominences Protected 9:29:48 A # 20 IV was noted in the Hand (right). Grade = 0 Patient arrived on 0.078 mcg/kg/min AGGRASTAT DRIP in Right Hand via Peripheral IV. Pump/Drip F low = 10 ml/hr 9:29:49 using NaCl .9 with a concentration of 12.5 mg in 250 ml. Ordered by Rosalinda Kimball. 9:29:51 History and physical on the chart or being dictated. Vitals capture started with the following parameters, Patient=Adult, Interval=3 min, Initial Pr lhyygp=218 mmHg, 9:39:28 Deflation Rate=5 mmHg, Cuff placed on Left Ankle 9:39:29 Reference ECG taken Assessment: Initial Case, HR=58 BPM, Rhythm=nsr, QERP=774/105 mmhg, Chest Pain=0, Edema=None, Color=Normal, Skin = Warm, Dry Right Pulses: Arnav Ped=2, Femoral=2 9:39:30 Left Pulses: Arnav Ped=2, Femoral=2 Neurological: State=Alert, Ox3, CONLEY Respiration: Resp=15 B/min, SpO2=97 % 9:40:56 HR=60 bpm, ZKES=299/105 mmhg, SpO2=96 %, Resp=18 B/min, Pain=0, Ortiz=10, Guerrero=2 9:42:41 Bilateral groins prepped with 2% chlorhexidine, and draped after a 3 minute waiting time. 9:43:11 HR=58 bpm, AAVB=188/110 mmhg, SpO2=95.0 %, Resp=16 B/min, Pain=0, Ortiz=10, Guerrero=2 9:45:06 MD arrived. 9:46:15 HR=78 bpm, UFDX=254/117 mmhg, SpO2=97.0 %, Resp=19 B/min, Pain=0, Ortiz=10, Guerrero=2 9:49:13 HR=62 bpm, GKZP=544/104 mmhg, SpO2=95.0 %, Resp=15 B/min, Pain=0, Ortiz=10, Guerrero=2 9:50:49 Pressure channel 1 zeroed. 9:51:28 Contrast Scanned 9:51:29 Immediate Presedation assesment performed by physician. 9:52:10 HR=62 bpm, RSDU=246/102 mmhg, SpO2=96.0 %, Resp=16 B/min, Pain=0, Ortiz=10, Guerrero=2 9:55:10 HR=69 bpm, YQYB=271/107 mmhg, SpO2=99 %, Resp=16 B/min, Pain=0, Ortiz=10, Guerrero=2 9:56:14 1 mg VERSED given in lab by Hermilo Pineda RN in Right Hand via Peripheral IV. Ordered by Rosalinda Vera. 9:56:21 25 mcg FENTANYL given in lab by Hermilo Pineda RN in Right Hand via Peripheral IV. Ordered by Rosalinda Kimball. 9:58:14 HR=64 bpm, WILW=664/95 mmhg, SpO2=95.0 %, Resp=15 B/min, Pain=0, Ortiz=10, Guerrero=2 10:01:14 HR=63 bpm, GZNP=856/93 mmhg, SpO2=95.0 %, Resp=14 B/min, Pain=0, Ortiz=10, Guerrero=2 Time Out. Correct patient, correct procedure, correct physician, power injector loaded with con trast with surgical team 10:02:09 present. Time Out Concurred by MD and individual staff in procedure. 10:02:19 Verbal Stimulation=2 Physical Stimulation=2 Airway=2 Respiration=2 TOTAL=8. (0=absent, 1=li mited, 2=present) 10:02:30 1 mg VERSED given in lab by Hermilo Pineda RN in Right Hand via Peripheral IV. Ordered by Rosalinda Kimball. 10:02:36 20 mL 1% XYLOCAINE given in lab by Rosalinda Kimball in Right Groin via Subcutaneous. 10:02:51 25 mcg FENTANYL given in lab by Hermilo Pineda RN in Right Hand via Peripheral IV. Ordered by Rosalinda Kimball. 10:04:33 Access site was Right Femoral Artery. 10:04:41 A SHEATH, FR5 TERUMO (10CM) FR 5 was advanced into the Fem Art (right) using the Percutaneo us technique. A PIGTAIL ANG. INFINITI CATHETER FR 5 was advanced over a wire. OMNIPAQUE, 350 MG, 150ML 150ML was used 10:04:45 for injections. 10:04:54 HR=61 bpm, YVSU=596/96 mmhg, SpO2=94.0 %, Resp=13 B/min, Pain=0, Ortiz=10, Guerrero=2 Recorded Pressure: LV, HR=65, Condition=Condition 1 10:06:40 (Left Ventricle) LV 149/10/21 10:07:17 HR=66 bpm, BWKI=397/94 mmhg, SpO2=95.0 %, Resp=16 B/min, Pain=0, Ortiz=10, Guerrero=2 10:07:24 The LV was injected at 10 cc/sec for a total of 30. OMNIPAQUE, 350 MG, 50ML 50ML used. Recorded Pressure: LV, Ao, HR=62, Condition=Condition 1 10:08:40 (Left Ventricle) LV 161/12/25, (Aorta) Ao 159/80/113 10:08:58 Catheter was removed A AR MOD INFINITI CATHETER FR 5 was advanced over a wire. OMNIPAQUE, 350 MG, 150ML 150ML was us ed for 10:08:59 injections. Recorded Pressure: Ao, HR=61, Condition=Condition 1 10:09:55 (Aorta) Ao 177/98/128 10:10:13 HR=61 bpm, NRTC=876/101 mmhg, SpO2=96.0 %, Resp=16 B/min, Pain=0, Ortiz=10, Guerrero=2 10:10:21 The RCA was injected and visualized at various angles. OMNIPAQUE, 350 MG, 150ML 150ML used . 10:12:10 Catheter was removed A JL 4.0 INFINITI CATHETER FR 5 was advanced over a wire. OMNIPAQUE, 350 MG, 150ML 150ML was us ed for 10:12:11 injections. 10:13:17 HR=66 bpm, LAFM=934/105 mmhg, SpO2=95.0 %, Resp=19 B/min, Pain=0, Ortiz=10, Guerrero=2 10:13:31 The LCA was injected and visualized at various angles. OMNIPAQUE, 350 MG, 150ML 150ML used . 10:16:18 HR=63 bpm, SSMY=150/104 mmhg, SpO2=96.0 %, Resp=16 B/min, Pain=0, Ortiz=10, Guerrero=2 10:19:18 HR=64 bpm, LEUL=731/103 mmhg, SpO2=96.0 %, Resp=19 B/min 10:22:18 HR=61 bpm, KUND=705/114 mmhg, SpO2=96.0 %, Resp=16 B/min, Pain=0, Ortiz=10, Guerrero=2 10:24:02 Activated Clotting Time Drawn 10:25:16 HR=62 bpm, VSTI=074/104 mmhg, SpO2=97.0 %, Resp=20 B/min, Pain=0, Ortiz=10, Guerrero=2 10:27:49 ACT (Normal Range 90-180) = 162 10:27:52 Catheter was removed A SHEATH, FR6.5 PRELUDE 11CM FR 6.5 was exchanged in the Fem Art (right). This was necessary in order to 10:27:53 accomodate a larger catheter. 10:28:17 HR=63 bpm, JAPT=141/101 mmhg, SpO2=97.0 %, Resp=19 B/min, Pain=0, Ortiz=10, Guerrero=2 10:28:34 7000 units HEPARIN given in lab by Hermilo Pineda RN in Right Hand via Peripheral IV. Orde red by Rosalinda Kimball. A AR 1 SH GUIDE CATHETER FR 6 was advanced over a wire. OMNIPAQUE, 350 MG, 150ML 150ML was used for 10:28:57 injections. 10:31:17 HR=65 bpm, OMEK=240/100 mmhg, SpO2=99.0 %, Resp=15 B/min, Pain=0, Ortiz=10, Guerrero=2 10:32:35 A WIRE, BALANCE MIDDLEWEIGHT 190CM (LEXX) 190CM was inserted via Fem Art (right). 10:34:17 HR=69 bpm, YTVD=623/95 mmhg, SpO2=98.0 %, Resp=11 B/min, Pain=0, Ortiz=10, Guerrero=2 10:34:42 Interventional wire has crossed the lesion 10:34:43 200 mcg NTG (IC) given in lab by Ayesha Santana RT(R) (BS) via Intra-coronary. Ordered b y Rosalinda Kimball. 10:37:13 HR=66 bpm, OHGT=802/87 mmhg, SpO2=99.0 %, Resp=11 B/min, Pain=0, Ortiz=10, Guerrero=2 A BALLOON, 2.0 X 10MM EUPHORA 10MM was inserted over WIRE, BALANCE MIDDLEWEIGHT 190CM (LEXX) 19 0CM 10:38:10 via the PDA Prox. A BALLOON, 2.0 X 10MM EUPHORA 10MM over a WIRE, BALANCE MIDDLEWEIGHT 190CM (LEXX) 190CM in the PDA 10:38:33 Prox was inflated using a 30 NOHEMI INDEFLATOR at 14 nohemi for 15 sec. A BALLOON, 2.0 X 10MM EUPHORA 10MM over a WIRE, BALANCE MIDDLEWEIGHT 190CM (LEXX) 190CM in the PDA 10:39:37 Prox was inflated using a 30 NOHEMI INDEFLATOR at 14 nohemi for 45 sec. 10:40:52 HR=47 bpm, PMZV=463/99 mmhg, WyW9=328.0 %, Resp=11 B/min, Pain=0, Ortiz=10, Guerrero=2 A BALLOON, 2.0 X 10MM EUPHORA 10MM over a WIRE, BALANCE MIDDLEWEIGHT 190CM (LEXX) 190CM in the PDA 10:41:03 Prox was inflated using a 30 NOHEMI INDEFLATOR at 14 nohemi for 20 sec. A BALLOON, 2.0 X 10MM EUPHORA 10MM over a WIRE, BALANCE MIDDLEWEIGHT 190CM (LEXX) 190CM in the RCA 10:41:52 Mid was inflated using a 30 NOHEMI INDEFLATOR at 15 nohemi for 10 sec. A BALLOON, 2.0 X 10MM EUPHORA 10MM over a WIRE, BALANCE MIDDLEWEIGHT 190CM (LEXX) 190CM in the RCA 10:41:55 Mid was inflated using a 30 NOHEMI INDEFLATOR at 15 nohemi for 45 sec. 10:42:37 200 mcg NTG (IC) given in lab by Ayesha Santana RT(R) (BS) via Intra-coronary. Ordered b Rosalinda Shearer. 10:43:18 HR=77 bpm, QADF=942/83 mmhg, SpO2=99.0 %, Resp=17 B/min, Pain=0, Ortiz=10, Guerrero=2 10:43:28 Balloon Removed. 10:46:16 HR=59 bpm, IQQD=333/87 mmhg, SpO2=98.0 %, Resp=15 B/min, Pain=0, Ortiz=10, Guerrero=2 A STENT, 2.25 8MM GAY 2.25 8MM was advanced through a AR 1 SH GUIDE CATHETER FR 6 over a WIRE, BALANCE 10:48:17 MIDDLEWEIGHT 190CM (LEXX) 190CM. A STENT, 2.25 8MM GAY 2.25 8MM was deployed using a 30 NOHEMI INDEFLATOR at 12 atmospheres for 30 seconds in 10:49:18 the PDA Prox. 10:50:03 HR=62 bpm, FRCV=735/96 mmhg, LrG6=202.0 %, Resp=18 B/min, Pain=0, Ortiz=10, Guerrero=2 10:50:44 Delivery device removed 10:52:16 HR=62 bpm, VIEW=202/93 mmhg, ZaW8=026.0 %, Resp=18 B/min, Pain=0, Ortiz=10, Guerrero=2 A STENT, 2.25 12MM GAY 2.25 12MM was advanced through a AR 1 SH GUIDE CATHETER FR 6 over a WIR E, 10:53:05 BALANCE MIDDLEWEIGHT 190CM (LEXX) 190CM. A STENT, 2.25 12MM GAY 2.25 12MM was deployed using a 30 NOHEMI INDEFLATOR at 13 atmospheres for 30 seconds 10:55:04 in the RCA Mid. 10:55:16 Delivery device removed 10:55:17 HR=44 bpm, PQAV=732/93 mmhg, SpO2=98.0 %, Resp=19 B/min, Pain=0, Ortiz=10, Guerrero=2 10:58:19 HR=50 bpm, VNON=815/97 mmhg, PsH7=618.0 %, Resp=16 B/min, Guerrero=6 10:58:23 1 mg VERSED given in lab by Hermilo Pineda, RN in Right Hand via Peripheral IV. Ordered by Rosalinda Kimball. 10:58:26 25 mcg FENTANYL given in lab by Hermilo Pineda, ANG in Right Hand via Peripheral IV. Ordered by Rosalinda Kimball. A STENT, 2.5 34MM GAY 2.5 34MM was advanced through a AR 1 SH GUIDE CATHETER FR 6 over a WIRE, BALANCE 10:58:42 MIDDLEWEIGHT 190CM (LEXX) 190CM. A STENT, 2.5 34MM GAY 2.5 34MM was deployed using a 30 NOHEMI INDEFLATOR at 12 atmospheres for 45 seconds in 11:00:24 the RCA Mid. 11:01:19 HR=53 bpm, TMHW=978/98 mmhg, SpO2=99.0 %, Resp=18 B/min, Pain=0, Ortiz=10, Guerrero=2 11:01:34 Delivery device removed 11:03:36 200 mcg NTG (IC) given in lab by Ayesha Santana RT(R) (BS) via Intra-coronary. Ordered b Rosalinda Shearer. 11:04:19 HR=72 bpm, AXYT=905/94 mmhg, SpO2=99 %, Resp=18 B/min, Pain=0, Ortiz=10, Guerrero=2 11:05:02 Activated Clotting Time Drawn 11::45 Wire removed 11::48 Catheter was removed 11:07:25 An injection in the Fem Art (right) was made through the SHEATH, FR6.5 PRELUDE 11CM FR 6.5. 11:08:01 1 mg VERSED given in lab by Hermilo Pineda, ANG in Right Hand via Peripheral IV. Ordered by Rosalinda Kimball. 11:08:03 25 mcg FENTANYL given in lab by Hermilo Pineda RN in Right Hand via Peripheral IV. Ordered by Rosalinda Kimball. 11:08:05 HR=79 bpm, WHVJ=404/121 mmhg, SpO2=98.0 %, Resp=20 B/min, Pain=0, Ortiz=10, Guerrero=2 11:10:09 ANGIOSEAL, FR6 VIP FR 6 placement in the Fem Art (right) 11:10:26 HR=60 bpm, IHWQ=053/97 mmhg, Resp=18 B/min 11:10:26 ACT (Normal Range 90-180) = 270 11:12:28 Case End Assessment: Final Case, HR=60 BPM, Rhythm=nsr, EZWB=780/97 mmhg, Chest Pain=0, Edema=None, [place] r=Normal, Skin = Warm, Dry Right Pulses: Arnav Ped=2, Femoral=2 11:12:31 Left Pulses: Arnav Ped=2, Femoral=2 Neurological: State=Alert, Ox3, CONLEY Respiration: Resp=15 B/min, SpO2=97 % 11:12:47 Catheter(s) removed without difficulty 11:12:47 In the Fem Art (right) the SHEATH, FR6.5 PRELUDE 11CM FR 6.[address] by Ayesha Leahy RT(R) (BS). 11:12:55 Sterile dressing applied to site 11:12:56 No case complications noted. 11:12:57 Cine recording checked. 11:12:59 Bedside Report will be given. 11:13:00 Implantable Device card placed in patient's chart. 11:13:01 Contrast Scanned 11:13:02 Verbal Stimulation=2 Physical Stimulation=2 Airway=2 Respiration=2 TOTAL=8. (0=absent, 1=li mited, 2=present) 11:13:09 A Left Heart Cath was performed. 11:13:12 A Right Heart Cath was performed. 11:13:16 HR=47 bpm, GYFP=511/97 mmhg, SpO2=99.0 %, Resp=16 B/min, Pain=0, Ortiz=10, Guerrero=2 11:17:10 GXUZ=976/106 mmhg, SpO2=98 % 11:18:57 Vitals capture stopped. End Study - Contrast Media Used In Study Contrast Total Opened (mL) Total Used (mL) Total Wasted (mL) Omnipaque 200 200 0 End Study - Maximum Contrast Load Max Contrast Load (mL) 443.0 End Study - Radiation Exposure Fluoro Time (minutes) 12.8 End Study - Patient Disposition Complications Transferred To Interventional Outcome No Telemetry Bed successful
--- NOTE | 2017-02-13 12:29 | EKG ---
Date Performed: 02/12/2017 Time Performed: 15:48:40 PTAGE: 56 years EKG: Sinus bradycardia with sinus arrhythmia with 1st degree A-V block. Extensive T wave changes may be due to myocardial ischemia Abnormal ECG PREVIOUS TRACING : 02/12/2017 04.50 Consider anterior ischemia and inferior ischemia DOCTOR: Lan Anna Interpretating Date/Time 02/13/2017 12:27:07
[2017-02-13] MEDS ORDERED: SODIUM CHLOR 0.9% 1000 ML INJ 1,000 ML IV SCH (13:31)
--- NOTE | 2017-02-13 13:36 | MA ---
cc: LIBERTAD POPE DATE: 02/13/2017 INDICATION Tec-LD-fltccxdhu myocardial function, class IV angina, coronary artery disease, history of coronary stenting. PROCEDURE PERFORMED 1. Retrograde heart catheterization with left ventriculography and selective coronary angiography. 2. Angioplasty and stenting of the distal right coronary artery, proximal posterior descending artery and mid right coronary artery. 3. Moderate sedation. ACCESS SITE Right femoral artery using ultrasound guidance. EQUIPMENT USED 5 American pigtail catheter. 5 American JL4 and AR modified coronary artery catheters. AR-1 guide with side holes. 2.0 balloon for pre-dilatation. 2.25 x 8 mm Ramin stent at 12 atmospheres to the proximal PDA. 2.25 x 12 mm Ramin stent at 14 atmospheres to the distal RCA. 2.5 x 34 mm [place] stent at 14 atmospheres to the mid RCA. MEDICATIONS USED Versed IV, fentanyl IV, heparin IV, tirofiban IV, nitroglycerin IC, Brilinta 180 mg p.o. CONTRAST Omnipaque, 200 cc. METHOD OF HEMOSTASIS Angio-Seal closure. COMPLICATIONS None. ESTIMATED BLOOD LOSS Less than 10 cc. RESULTS HEMODYNAMICS Heart rate 70 beats minute. End-diastolic pressure 12 mmHg. Left ventricle 165/12. Aorta 165/98/88. LEFT VENTRICULOGRAPHY Ejection fraction 50%. Wall motion mild inferior hypokinesis and small area of mild anteroapical hypokinesis. No mitral regurgitation. CORONARY ANGIOGRAPHY The left main coronary artery is patent. The left anterior descending artery has 40% stenosis in the midportion distally to the second diagonal branch. There is 60% stenosis in the distal apical portion of the LAD. D1 patent. D2 has 30% ostial stenosis. The left circumflex artery has a patent stent in the proximal portion. There is 70% distal stenosis prior to the ostium of the left PDA which is patent. OM1 patent. OM2 patent. The right coronary is a co-dominant vessel with 95% stenosis in the distal portion, 80% sequential stenosis in the midportion. PLV patent. PDA has proximal 80% stenosis. Stenosis in the distal RCA 95%, lesion length 9 mm, pre-GEORGETTE flow III, post-GEORGETTE flow III, post stenosis zero. Stenosis in the mid RCA 80% sequential, lesion length 28 mm, pre-GEORGETTE flow III, post-GEORGETTE flow III, post stenosis zero. Stenosis in the proximal PDA 80%, lesion length 5 mm, pre-GEORGETTE flow III, post-GEORGETTE flow III, post stenosis zero. POST INTERVENTION ANGIOGRAPHY Excellent patency of the stented segments and no evidence of dissection, thrombosis or distal embolization. DIAGNOSIS 1. Oaj-XQ-wdropsirw myocardial infarction. 2. Multivessel coronary artery disease with 95% stenosis of the distal right coronary number (culprit lesion). 3. Borderline normal left ventricular systolic function. 4. Successful angioplasty and stenting of the distal right coronary artery, mid right coronary artery, proximal portion of the right posterior descending artery. DISPOSITION Mr. Jacob will be monitored on telemetry after his procedure. Will continue long-term therapy with Brilinta and aspirin. Will continue aggressive modification of his cardiac risk factors. He will follow-up with Dr. Crowley, his primary certified medical coder, in his office after discharge. MD DAVID Orellana/KRIS /11:23 AM /1:01 PM
[2017-02-13] MEDS: ASPIRIN 81 MG CHEW TAB CHEW SCH (13:37)
[2017-02-13] MEDS: CARVEDILOL 3.125 MG TAB PO SCH ×2 (13:38→20:55)
[2017-02-13] MEDS: cefTRIAXone INJ 1,000 MG in SODIUM CHLORIDE 0.9% INJ 100 ML IV SCH (13:39)
[2017-02-13] MEDS ORDERED: MISC INFORMATION XX ONE (13:45)
[2017-02-13] MEDS ORDERED: ASPIRIN 81 MG CHEW TAB PO SCH (13:45)
[2017-02-13] MEDS: PANTOPRAZOLE SODIUM 40 MG VIAL IV PUSH SCH (13:46)
[2017-02-13] MEDS: LOSARTAN 50 MG TAB PO SCH (13:46)
[2017-02-13] MEDS: DOCUSATE SODIUM 50 MG/SENNA 8.6 MG TAB PO SCH ×2 (13:46→20:57)
[2017-02-13] MEDS: SODIUM CHLORIDE 0.9% FLUSH 10 ML FLUSH IV FLUSH SCH ×2 (13:47→20:56)
[2017-02-13] MEDS: SODIUM CHLOR 0.9% 1000 ML INJ 1,000 ML IV SCH ×2 (14:07→20:45)
[2017-02-13] MEDS: TIROFIBAN INFUSION INJ 250 ML IV SCH ×2 (14:08→16:37)
[2017-02-13] MEDS ORDERED: ACETAMINOPHEN 325 MG TAB PO PRN (15:00)
--- NOTE | 2017-02-13 15:57 | HHI.FPPN ---
Subjective Remarks Patient seen and examined earlier this morning. Stated he had some chest pain last night, however he received some IV pain medication and was able to sleep for most of the rest of the night. Eager to have his catheterization today. Reports some dizziness No chest pain, change in vision, back pain currently. No shortness of breath, abdominal pain, change in bowel habits, change in urinary habits. (Archie Stark MD R1) Objective Vitals Vital Signs Date Time Temp Pulse Resp B/P (MAP) Pulse Ox O2 Delivery O2 Flow Rate FiO2 02/13/17 11:39 97.4 50 16 156/96 (116) 100 02/13/17 08:36 18 02/13/17 07:30 98.9 68 18 161/93 (115) 98 02/13/17 07:00 66 02/13/17 04:01 98.2 69 18 142/81 (101) 97 02/13/17 03:18 60 02/12/17 23:00 98.1 57 18 148/81 (103) 97 02/12/17 23:00 40 02/12/17 20:00 98.1 57 18 132/83 (99) 97 02/12/17 19:00 44 02/12/17 17:46 93 21 02/12/17 16:00 97.6 56 18 122/69 (86) 93 I/O 02/12/17 02/12/17 02/12/17 02/13/17 02/13/17 02/13/17 07:00 15:00 23:00 07:00 15:00 23:00 Intake Total 1100 ml 600 ml 1738 ml Output Total 400 ml 300 ml 400 ml Balance 700 ml 300 ml 1338 ml Intake Oral 620 ml IV Total 1100 ml 600 ml 1118 ml Output Urine Total 400 ml 300 ml 400 ml # Voids 1 2 # Bowel Movements 0 0 (Archie Stark MD R1) Result Diagram: 02/13/1745702/13/17457 Imaging Last 48 hours Impressions Chest X-Ray 02/12/17450 Signed Impressions: Service Date/Time: February 05:04 - CONCLUSION: Mild mid lung infiltrate on the right and basilar infiltrate on the left. Tony Castorena MD Gall Bladder Ultrasound 02/12/17 0000 Signed Impressions: Service Date/Time: February 12:08 - CONCLUSION: 1. Hepatomegaly without focal lesion. 2. Large gallstones. 3. Prominence of the pancreatic duct, measuring up to 5 mm. Ba Ryan MD Objective Remarks GENERAL: Laying in bed, pleasant, no acute distress SKIN: Warm and dry. HEAD: Atraumatic. Normocephalic. EYES: Pupils equal and round. No scleral icterus. No injection or drainage. ENT: No nasal bleeding or discharge. Mucous membranes pink and moist. NECK: Trachea midline. No JVD. CARDIOVASCULAR: Regular rhythm. Rate in the 50s. No murmurs, rubs, gallops RESPIRATORY: No accessory muscle use. Clear to auscultation. Breath sounds equal bilaterally. GASTROINTESTINAL: Abdomen soft, non-tender, nondistended. Hepatic and splenic margins not palpable. MUSCULOSKELETAL: Extremities without clubbing, cyanosis, or edema. No obvious deformities. NEUROLOGICAL: Awake and alert. No obvious cranial nerve deficits. Motor grossly within normal limits. Five out of 5 muscle strength in the arms and legs. Normal speech. PSYCHIATRIC: Appropriate mood and affect; insight and judgment normal. Procedures Cardiac catheterization 02/13 Medications and IVs Current Medications Medications (Trade) Dose Ordered Sig/Lexi Route Start Time Stop Time Status Last Admin Sodium Chloride 1,000 ml @ 160 mls/hr Q6H15M IV 02/12/17 07:45 02/13/17 14:07 (NS Flush) 2 ml UNSCH PRN IV FLUSH 02/12/17 08:00 (NS Flush) 2 ml BID IV FLUSH 02/12/17 09:00 02/13/17 13:47 (Zofran Inj) 4 mg Q6H PRN IVP 02/12/17 08:00 (Narcan Inj) 0.4 mg UNSCH PRN IV PUSH 02/12/17 07:30 (Pilar-Colace) 1 tab BID PO 02/12/17 09:00 02/13/17 13:46 (Morphine Inj) 4 mg Q3H PRN IV PUSH 02/12/17 09:00 02/13/17 17:31 (Nitroglycerin 2% Oint) 1 inch Q8HR PRN TOPICAL 02/12/17 13:00 (Aspirin Chew) 81 mg DAILY CHEW 02/13/17 09:00 02/13/17 13:37 (Cozaar) 100 mg DAILY PO 02/12/17 09:00 02/13/17 13:46 (Protonix Inj) 40 mg Q24H IV PUSH 02/12/17 08:00 02/13/17 13:46 Ceftriaxone Sodium 1000 mg/ Sodium Chloride 100 ml @ 200 mls/hr Q24H IV 02/12/17 09:00 02/13/17 13:39 (Romazicon Inj) 0.2 mg Q1M PRN IV PUSH 02/12/17 14:15 (Ativan) 1 mg Q4H PRN PO 02/12/17 14:15 (Ativan Inj) 1 mg Q4H PRN IV PUSH 02/12/17 14:15 (Ativan) 2 mg Q2H PRN PO 02/12/17 14:15 (Ativan Inj) 2 mg Q2H PRN IV PUSH 02/12/17 14:15 (Ativan Inj) 2 mg Q1H PRN IV PUSH 02/12/17 14:15 (Ativan Inj) 2 mg Q15M PRN IV PUSH 02/12/17 14:15 (Coreg) 3.125 mg Q12HR PO 02/12/17 21:00 02/13/17 13:38 (Lipitor) 80 mg HS PO 02/12/17 21:00 02/12/17 21:22 (Tylenol) 325 mg Q4H PRN PO 02/13/17 15:00 (Brilinta) 90 mg BID PO 02/13/17 21:00 Tirofiban/Sodium Chloride 250 ml @ 19.134 mls/ hr Q13H4M IV 02/13/17 13:36 02/13/17 16:37 (Apresoline Inj) 10 mg Q6H PRN IV PUSH 02/13/17 17:45 (Vibramycin) 100 mg BID PO 02/13/17 21:00 (Archie Stark MD R1) A/P Assessment and Plan 56 year old man being admitted for ACS rule out and treatment of pancreatitis. Also found to have mild right mid lung and left basilar infiltrates on CXR. (Archie Stark MD R1) Attending Attestation Patient seen and examined. Case reviewed and discussed Agree with plan of care as discussed with me and documented in the resident note. Patient seen prior to cardiac cath. Appreciate cardiology recs. GI work-up once improved from a cardiology standpoint (Camille Krueger MD) Problem List: (1) Chest pain ICD Codes: R07.9 - Chest pain, unspecified Status: Resolved Plan: Differential including ACS, pancreatitis, pneumonia, costochondritis Initial EKG demonstrating NSR, no significant ST changes Initial troponin 0.02, increased to 20.70 over night Morphine 4 mg IV q3h prn pain Continue nitro ointment as needed for chest pain Keep on continuous telemetry Per cardiology, Heparin, Aggrastat, beta precious, aspirin, statin, catheterization today (2) Pancreatitis ICD Codes: K85.9 - Pancreatitis Status: Chronic Plan: Lipase on admission 469, decreased to 272 US showed pancreatic duct dilation, Large stones IVF hydration with NS at 160 cc/hr Bowel rest for now Pain control with Morphine 4 mg IV q3h prn pain Dilaudid prn breakthrough pain Consider MRCP following cardio clearance after catheterization continue protonix (3) Pulmonary infiltrate on chest x-ray ICD Codes: R91.8 - Other nonspecific abnormal finding of lung field Status: Acute Plan: CXR showing mild mid right lung and left basilar pulmonary infiltrates Patient is afebrile without leukocytosis and other typical symptoms of pneumonia Will treat as pneumonia with Rocephin and doxycycline Continue to monitor WBC and vitals (4) Hypertension ICD Codes: I10 - Hypertension Status: Chronic Plan: BP on admission 241/124, now improved recently Continue home Losartan 100 mg daily Hydralazine prn SBP >180 HR low in the upper 40s to low 50s, will not start beta precious at this time (5) Nutrition, metabolism, and development symptoms ICD Codes: R63.8 - Other symptoms and signs concerning food and fluid intake Status: Acute Plan: Fluids: NS at 160 cc/hr Electrolytes: WNL Nutrition: NPO for now DVT ppx: b/l SCDs (Archie Stark MD R1) Problem Qualifiers (1) Chest pain: Qualified Codes: R07.9 - Chest pain, unspecified (2) Pancreatitis: Qualified Codes: K86.1 - Other chronic pancreatitis Archie Stark MD R1 Feb 13, 2017 15:57 Camille Krueger MD Feb 14, 2017 13:29
--- NOTE | 2017-02-13 17:44 | HHI.GIFU ---
Subjective Remarks Pt resting in bed. Had hamburger for lunch and is ordering another one. C/o of some gassiness. +flatus. Denies chest pain or abd pain. (Daja Pizarro) Objective Vitals I&O Vital Signs Date Time Temp Pulse Resp B/P (MAP) Pulse Ox O2 Delivery O2 Flow Rate FiO2 02/13/17 11:39 97.4 50 16 156/96 (116) 100 02/13/17 08:36 18 02/13/17 07:30 98.9 68 18 161/93 (115) 98 02/13/17 07:00 66 02/13/17 04:01 98.2 69 18 142/81 (101) 97 02/13/17 03:18 60 02/12/17 23:00 98.1 57 18 148/81 (103) 97 02/12/17 23:00 40 02/12/17 20:00 98.1 57 18 132/83 (99) 97 02/12/17 19:00 44 02/12/17 17:46 93 21 I/O 02/12/17 02/12/17 02/12/17 02/13/17 02/13/17 02/13/17 07:00 15:00 23:00 07:00 15:00 23:00 Intake Total 1100 ml 600 ml 1738 ml Output Total 400 ml 300 ml 400 ml Balance 700 ml 300 ml 1338 ml Intake Oral 620 ml IV Total 1100 ml 600 ml 1118 ml Output Urine Total 400 ml 300 ml 400 ml # Voids 1 2 # Bowel Movements 0 0 Laboratory Laboratory Tests Test 02/12/17 22:42 02/13/17 04:58 White Blood Count 10.0 8.2 Red Blood Count 4.13 4.05 Hemoglobin 13.1 12.9 Hematocrit 38.8 37.9 Mean Corpuscular Volume 93.9 93.8 Mean Corpuscular Hemoglobin 31.7 32.0 Mean Corpuscular Hemoglobin Concent 33.8 34.1 Red Cell Distribution Width 13.8 13.5 Platelet Count 197 197 Mean Platelet Volume 7.4 7.8 Neutrophils (%) (Auto) 48.6 52.2 Lymphocytes (%) (Auto) 39.1 31.7 Monocytes (%) (Auto) 10.1 12.3 Eosinophils (%) (Auto) 1.5 2.5 Basophils (%) (Auto) 0.7 1.3 Neutrophils # (Auto) 4.9 4.3 Lymphocytes # (Auto) 3.9 2.6 Monocytes # (Auto) 1.0 1.0 Eosinophils # (Auto) 0.1 0.2 Basophils # (Auto) 0.1 0.1 CBC Comment DIFF FINAL DIFF FINAL Differential Comment Activated Partial Thromboplast Time 61.2 55.6 Blood Urea Nitrogen 10 Creatinine 1.23 Random Glucose 91 Total Protein 6.3 Albumin 3.0 Calcium Level 9.2 Alkaline Phosphatase 56 Aspartate Amino Transf (AST/SGOT) 47 Alanine Aminotransferase (ALT/SGPT) 12 Total Bilirubin 0.3 Sodium Level 141 Potassium Level 3.8 Chloride Level 109 Carbon Dioxide Level 25.1 Anion Gap 7 Estimat Glomerular Filtration Rate 74 Physical Exam HEENT: PERRL; normocephalic; atraumatic; no jaundice. CHEST: CTA CARDIAC: RRR ABDOMEN: Soft, nondistended, nontender; no hepatosplenomegaly; bowel sounds are present in all four quadrants. EXTREMITIES: No clubbing, cyanosis, or edema. SKIN: Normal; no rash; no jaundice. HUMAN RESOURCE CONSULTANT: No focal deficits; alert and oriented times three. (Daja Pizarro [facility]) Assessment and Plan Plan ASSESSMENT: - NSTEMI, Chest pain, Hx CAD. Pt with hx of CAD, presented with chest pain. No relief with 2 Goody ASA. States his pain completely resolved after Morphine. Original troponin 0.02, repeat 15.0. Cardiology consulted. - N/V. GI was consulted for chest pain, n/v, elevated lipase, suspected pancreatitis. Pt has hx of pancreatitis x 2 r/t ETOH use. Pt reports that he was awakened with substernal chest pressure with associated n/v and sob. no abdominal pain, no diarrhea. Lipase was mildly elevated 469. US (02/12/17 )---> hepatomegaly without focal lesion. Large gallstones. Prominence of the pancreatic duct, measuring up to 5mm. Lipase was mildly elevated at 469. LFTs are unremarkable other than elevated AST 48. Of note, his troponin went from < 0.02 to 15.0. Its likely that his nausea and vomiting were related to NSTEMI and that his mildly elevated lipase could be related to n/v. Was going to get CT scan with pancreatic protocol to evaluate for pancreatitis, but given the sudden jump in troponin, we will hold in case cardiology plans to take him to the clinical laboratory manager, his creat is 1.30. - Elevated lipase, undetermined significance. US as above. No abdominal pain. CP/N,V resolved after Morphine. lipase decreased. tolerating diet (hamburgers). probably d/t vomiting. - HTN per attending. PLAN: - WILLA - cont protonix - monitor LFTs - monitor lipase - consider MRCP, with cardiac clearance, if symptoms worsen or reoccur - Supportive care - Pt seen and examined by Dr. Mcbride and myself and this note is written on his behalf (Daja Pizarro) Daja Pizarro Feb 13, 2017 17:44 Annia Mcbride MD Feb 13, 2017 19:32
[2017-02-13] MEDS ORDERED: hydrALAZINE HCL 20 MG/ML VIAL IV PUSH PRN (17:45)
[2017-02-13] MEDS: TICAGRELOR 90 MG TAB PO SCH (20:55)
[2017-02-13] MEDS: ATORVASTATIN 80 MG TAB PO SCH (20:55)
[2017-02-13] MEDS: DOXYCYCLINE HYCLATE 100 MG CAP PO SCH (21:00)
[2017-02-14] VITALS (24 sets, daily range): BP systolic 160–184; BP diastolic 94–109; PULSE 51–70; RESP 16–18; TEMP 97.7–98.6; O2SAT 96–99
[2017-02-14] MEDS: TIROFIBAN INFUSION INJ 250 ML IV SCH (00:12)
[2017-02-14] MEDS: MORPHINE SULFATE 4 MG/ML INJ IV PUSH PRN ×3 (00:20→09:39)
[2017-02-14] MEDS: SODIUM CHLOR 0.9% 1000 ML INJ 1,000 ML IV SCH (03:30)
[2017-02-14 05:19] LABS: AUTOMATED NEUTROPHIL # 3.5 TH/MM3 (1.8-7.7); BASOPHIL # 0.1 TH/MM3 (0-0.2); BASOPHIL % 1.1 % (0.0-2.0); EOSINOPHIL # 0.2 TH/MM3 (0-0.4); EOSINOPHIL % 2.4 % (0.0-4.0); HEMO FLAGS DIFF FINAL; LYMPH % 33.1 % (9.0-44.0); LYMPHOCYTE # 2.4 TH/MM3 (1.0-4.8); MEAN CELL VOLUME 93.7 FL (80.0-100.0); MEAN CORPUSCULAR HEMOGLOBIN 31.9 PG (27.0-34.0); MONO % 14.5 % (0.0-8.0); NEUT % 48.9 % (16.0-70.0); PLATELET COUNT 203 TH/MM3 (150-450); RED BLOOD COUNT 4.27 MIL/MM3 (4.50-5.90); RED CELL DISTRIBUTION WIDTH 13.3 % (11.6-17.2); WHITE BLOOD COUNT 7.2 TH/MM3 (4.0-11.0)
[2017-02-14 05:31] LABS: ANION GAP 6 MEQ/L (5-15); BICARBONATE 27.1 MEQ/L (21.0-32.0); BLOOD UREA NITROGEN 11 MG/DL (7-18); CHLORIDE 104 MEQ/L (98-107); GLOMERULAR FILTRATION RATE 72 ML/MIN (>89); POTASSIUM 4.1 MEQ/L (3.5-5.1); SODIUM (NA) 137 MEQ/L (136-145)
[2017-02-14 05:33] LABS: APTT (PATIENT) 28.7 SEC (24.3-30.1)
[2017-02-14 05:34] LABS: CREATINE KINASE 170 U/L (39-308); HDL CHOLESTEROL 59.5 MG/DL (40.0-60.0); LDL CHOLESTEROL 57 MG/DL (0-99)
[2017-02-14 05:50] LABS: CKMB 2.7 NG/ML (0.5-3.6)
[2017-02-14] MEDS: LOSARTAN 50 MG TAB PO SCH (08:10)
[2017-02-14] MEDS: CARVEDILOL 3.125 MG TAB PO SCH ×2 (08:11→20:59)
--- NOTE | 2017-02-14 08:39 | RADRPT ---
EXAM DATE/TIME: 02/14/2017 08:20 [place] COMPARISON: CHEST SINGLE AP, February 12, 2017, 5:04. INDICATIONS : Pneumonia. MEDICAL HISTORY : Hypertension. SURGICAL HISTORY : Coronary artery stent. ENCOUNTER: Subsequent ACUITY: 2 days PAIN SCORE: 0/10 LOCATION: Bilateral chest FINDINGS: The heart is normal in size. The mediastinal contours are within normal limits. There are chronic lalitha earing interstitial changes. These are stable compared to previous. There are degenerative changes in the shoulders and thoracic spine. CONCLUSION: No focal or segmental pneumonia identified. Stable compared to prior exam. Miguel Angel Vasquez MD on February 14, 2017 at 8:37 Board Certified Radiologist. This report was verified electronically.
[2017-02-14] MEDS: TICAGRELOR 90 MG TAB PO SCH ×2 (09:00→20:59)
[2017-02-14] MEDS: cefTRIAXone INJ 1,000 MG in SODIUM CHLORIDE 0.9% INJ 100 ML IV SCH (09:36)
[2017-02-14] MEDS: DOXYCYCLINE HYCLATE 100 MG CAP PO SCH ×2 (09:37→20:58)
[2017-02-14] MEDS: SODIUM CHLORIDE 0.9% FLUSH 10 ML FLUSH IV FLUSH SCH ×2 (09:38→20:59)
[2017-02-14] MEDS: DOCUSATE SODIUM 50 MG/SENNA 8.6 MG TAB PO SCH ×2 (09:38→20:59)
[2017-02-14] MEDS: ASPIRIN 81 MG CHEW TAB CHEW SCH (09:38)
[2017-02-14] MEDS: PANTOPRAZOLE SOD 40 MG DELAYED RELEASE TAB PO SCH (09:38)
[2017-02-14] MEDS ORDERED: ACETAMINOPHEN/HYDROcodone 325 MG/5 MG TAB PO PRN (10:30)
[2017-02-14] MEDS ORDERED: ACETAMINOPHEN/HYDROcodone 325 MG/7.5 MG TAB PO PRN (10:30)
[2017-02-14] MEDS ORDERED: ACETAMINOPHEN 325 MG TAB PO PRN (10:30)
--- NOTE | 2017-02-14 10:30 | HHI.FPPN ---
Subjective Remarks Patient was seen and examined this morning. Overnight he has been mildly hypertensive but is asymptomatic. He denies fevers, chills, chest pain, shortness of breath, coughing, lower extremity edema. He is ambulating about the room without difficulty. He is status post catheterization with stent placements per Dr. Kimball yesterday morning and he has not had any chest pain overnight. He knows that his surgical entry site on his right groin is little tender but is improving. He also requests to be taken off the diabetic diet because he does not have diabetes. (Ally Greenwood MD R2) Objective Vitals Vital Signs Date Time Temp Pulse Resp B/P (MAP) Pulse Ox O2 Delivery O2 Flow Rate FiO2 02/14/17 06:00 58 02/14/17 05:00 56 02/14/17 04:40 16 02/14/17 04:06 66 16 160/97 (118) 97 02/14/17 04:03 63 02/14/17 04:00 66 02/14/17 02:00 62 02/14/17 01:00 62 02/14/17 00:05 65 02/14/17 00:00 62 02/13/17 22:00 60 02/13/17 21:00 66 02/13/17 20:56 60 02/13/17 20:56 98.6 67 16 179/105 (129) 98 02/13/17 20:00 66 02/13/17 18:00 58 02/13/17 17:00 64 02/13/17 16:00 98.7 60 16 180/106 (130) 100 02/13/17 16:00 62 02/13/17 15:00 63 02/13/17 14:00 62 02/13/17 13:00 70 02/13/17 12:00 44 02/13/17 11:39 97.4 50 16 156/96 (116) 100 I/O 02/13/17 02/13/17 02/13/17 02/14/17 02/14/17 02/14/17 06:59 14:59 22:59 06:59 14:59 22:59 Intake Total 1738 ml 500 ml Output Total 400 ml 1125 ml 850 ml Balance 1338 ml -625 ml -850 ml Intake Oral 620 ml 500 ml IV Total 1118 ml Output Urine Total 400 ml 1125 ml 850 ml # Voids 2 # Bowel Movements 0 (Ally Greenwood MD R2) Result Diagram: 02/14/175 02/14/17 0445 Imaging Last Impressions Chest X-Ray 02/14/17 0600 Signed Impressions: Service Date/Time: Tuesday, February 14, 2017 08:20 - CONCLUSION: No focal or segmental pneumonia identified. Stable compared to prior exam. Miguel Angel Vasquez MD Gall Bladder Ultrasound 02/12/17 0000 Signed Impressions: Service Date/Time: February 12:08 - CONCLUSION: 1. Hepatomegaly without focal lesion. 2. Large gallstones. 3. Prominence of the pancreatic duct, measuring up to 5 mm. Ba Ryan MD Objective Remarks GENERAL: Well-nourished, well-developed Rina male who is pleasant and in no apparent distress. SKIN: Warm and dry. No rashes or ecchymoses. Right groin is examined and noted to have a gauze and clear tape dressing. There is some blood on it but no active bleeding. The site is mildly tender but no hematoma or infection noted. HEAD: Atraumatic. Normocephalic. EYES: PERRLA. EOMI. No conjunctival pallor. No scleral icterus. ENT: No nasal bleeding or discharge. Mucous membranes pink and moist. NECK: Trachea midline. No JVD. CARDIOVASCULAR: Regular rhythm. Bradycardia to 60s noted on telemetry. No murmurs, rubs, gallops auscultated. RESPIRATORY: No accessory muscle use. Clear to auscultation. Breath sounds equal bilaterally. GASTROINTESTINAL: Abdomen soft, non-tender, nondistended. Bowel sounds are normal. Hepatic and splenic margins not palpable. MUSCULOSKELETAL: Extremities without clubbing, cyanosis, or edema. No obvious deformities. NEUROLOGICAL: Awake and alert. Cranial nerves II through XII intact. He is walking without difficulty. Normal strength. Normal speech. PSYCHIATRIC: Appropriate mood and affect; insight and judgment normal. Procedures Cardiac catheterization 02/13 Medications and IVs Inpatient Medications Acetaminophen (Tylenol) 325 mg Q4H PRN PO PAIN SCALE 1 TO 5; Start 02/13/17 at 15:00 Aspirin (Aspirin Chew) 81 mg DAILY PO ; Start 02/13/17 at 13:45; Stop 02/13/17 at 14:37; Status DC Atorvastatin Calcium (Lipitor) 80 mg HS PO Last administered on 02/13/17 20:55 ; Start 02/12/17 at 21:00 Azithromycin (Zithromax) 500 mg ONCE ONCE PO Last administered on 02/12/17 09 :10; Start 02/12/17 at 08:00; Stop 02/12/17 at 08:05; Status DC Carvedilol (Coreg) 3.125 mg Q12HR PO Last administered on 02/14/17 08:11; Start 02/12/17 at 21:00 Ceftriaxone Sodium 1000 mg/ Sodium Chloride 100 ml @ 200 mls/hr Q24H IV Last administered on 02/14/17 09:36; Start 02/12/17 at 09:00 Doxycycline Hyclate (Vibramycin) 100 mg BID PO Last administered on 02/14/17 09:37; Start 02/13/17 at 21:00 Flumazenil (Romazicon Inj) 0.2 mg Q1M PRN IV PUSH SEE LABEL COMMENTS; Start at 14:15 Heparin Sodium (Porcine) (Heparin Inj) 2,500 units UNSCH PRN IV PUSH APTT 25 TO 39; Start 02/12/17 at 23:00; Stop 02/13/17 at 14:38; Status DC Heparin Sodium/ Dextrose 250 ml @ 10 mls/hr TITRATE PRN IV Coagulation management Last administered on 02/12/17 18:03; Start 02/12/17 at 17:00; Stop 02/13/17 at 14:38; Status DC Hydralazine HCl (Apresoline Inj) 10 mg Q6H PRN IV PUSH SBP> OR = 180, DBP> OR = 100; Start 02/13/17 at 17:45 Hydromorphone HCl (Dilaudid Pf Inj) 0.2 mg Q4H PRN IV PUSH BREAKTHROUGH PAIN; Start 02/12/17 at 08:00; Stop 02/12/17 at 14:17; Status DC Lorazepam (Ativan Inj) 2 mg Q15M PRN IV PUSH CIWA > 20; Start 02/12/17 at 14:15 Lorazepam (Ativan) 2 mg Q2H PRN PO CIWA 11-14; Start 02/12/17 at 14:15 Losartan Potassium (Cozaar) 100 mg DAILY PO Last administered on 02/14/17 08: 10; Start 02/12/17 at 09:00 Metoprolol Tartrate (Lopressor Inj) 5 mg Q5M IVS Last administered on 05:11; Start 02/12/17 at 05:00; Stop 02/12/17 at 05:11; Status DC Miscellaneous Information 1 ONCE ONCE XX Last administered on 02/13/17 13:45 ; Start 02/13/17 at 13:45; Stop 02/13/17 at 14:39; Status DC Morphine Sulfate (Morphine Inj) 4 mg Q3H PRN IV PUSH PAIN SCALE 6 TO 10 Last administered on 02/14/17 09:39; Start 02/12/17 at 09:00 Naloxone HCl (Narcan Inj) 0.4 mg UNSCH PRN IV PUSH SEE LABEL COMMENTS; Start 02/12/17 at 07:30 Nitroglycerin (Nitroglycerin 2% Oint) 1 inch Q8HR PRN TOPICAL CHEST PAIN; Start 02/12/17 at 13:00 Ondansetron HCl (Zofran Inj) 4 mg Q6H PRN IVP NAUSEA OR VOMITING; Start at 08:00 Pantoprazole Sodium (Protonix Inj) 40 mg Q24H IV PUSH Last administered on 02/13 13:46; Start 02/12/17 at 08:00; Stop 02/14/17 at 08:18; Status DC Pantoprazole Sodium (Protonix) 40 mg DAILY PO Last administered on 02/14/17 09 :38; Start 02/14/17 at 09:00 Senna/Docusate Sodium (Pilar-Colace) 1 tab BID PO Last administered on 09:38; Start 02/12/17 at 09:00 Sodium Chloride 1,000 ml @ 100 mls/hr Q10H IV Last administered on 02/13/17 16:37; Start 02/13/17 at 13:31; Stop 02/13/17 at 17:30; Status DC Sodium Chloride (NS Flush) 2 ml UNSCH PRN IV FLUSH FLUSH AFTER USING IV ACCESS ; Start 02/12/17 at 17:00; Stop 02/12/17 at 17:00; Status DC Ticagrelor (Brilinta) 90 mg BID PO Last administered on 02/14/17 09:00; Start 02/13/17 at 21:00 Tirofiban/Sodium Chloride 250 ml @ 19.134 mls/ hr Q13H4M IV Last administered on 02/14/17 00:12; Start 02/13/17 at 13:36; Stop 02/14/17 at 09:20; Status DC Tirofiban/Sodium Chloride 2650 mcg/ Syringe / Bag 53 ml @ 636 mls/hr BOLUS ONCE IV Last administered on 02/12/17 21:19; Start 02/12/17 at 19:00; Stop at 19:19; Status DC (Ally Greenwood MD R2) Urinary Catheter: No (Ally Greenwood MD R2) Vascular Central Line Catheter: No (Ally Greenwood MD R2) A/P Assessment and Plan 56 year old man being admitted for ACS rule out and treatment of pancreatitis. Also found to have mild right mid lung and left basilar infiltrates on CXR. Discharge Planning Possibly 1-2 days. Pending cardiology and GI clearance. Patient may require further workup for dilated pancreatic duct though symptoms have resolved which suggests they were related to cardiac ischemia rather than a GI source. Continue to monitor VS (Ally Greenwood MD R2) Attending Attestation Patient seen and examined. Case reviewed and discussed Agree with plan of care as discussed with me and documented in the resident note. Patient with no further chest pain. he is complaining of epigastric and LUQ pain after breakfast. (Camille Krueger MD) Problem List: (1) NSTEMI (non-ST elevated myocardial infarction) ICD Codes: I21.4 - Non-ST elevation (NSTEMI) myocardial infarction Status: Acute Plan: Patient presented with acute onset chest pain with initial troponin within normal limits, second and third troponins indicative of cardiac ischemia. EKG changes noted on 02/12 included T-wave inversions and non- contiguous ST depressions. Cardiology consulted Patient is status post heparinization 02/12, catheterization 02/13 with stenting Chest pain has improved Plan: Medication management per cardiology included heparin, Aggrenox, carvedilol, statin, aspirin, close monitoring Continued management includes ticagrelor initiated 02/13, aspirin, statin, beta precious Awaiting cardiology clearance Continue to monitor surgical site (2) Pancreatitis ICD Codes: K85.9 - Pancreatitis Status: Chronic Plan: Lipase on admission 469, decreased to 270s US showed pancreatic duct dilation to 5 mm, multiple large gallstones IVF hydration with NS at 160 cc/hr, DC'd today given hypertension, will monitor enzymes Patient states his pain has improved but he is still receiving morphine ( initially ordered at admission). No other pain medication ordered. * Will switch pain regiment to Tylenol PRN Pain 1-2, [place] 5-325mg PRN Pain 3-5 , [place] 7.55-325mg PRN Pain 6-10, Morphine 4 mg IV q3h prn breakthrough Consider MRCP following cardio clearance after catheterization continue protonix (3) Community acquired pneumonia ICD Codes: J18.9 - Pneumonia, unspecified organism Status: Acute Plan: Patient is asymptomatic CXR 02/12 showing mild mid right lung and left basilar pulmonary infiltrates Repeat CXR PA and lateral today showing no signs of pneumonia but there is evidence of pulmonary edema DC IV fluids as noted above Patient is currently on Rocephin 1g IV daily (02/12 - ) and doxycycline 100mg PO BID (02/13 - ). Plan to continue treatment for CAP this time. Avoiding macrolides given cardiac history and borderline prolonged QTc Continue to monitor WBC and vitals (4) Hypertension ICD Codes: I10 - Hypertension Status: Chronic Plan: BP on admission 241/124, with last BP over last 24 hours 180/106. Asymptomatic. Continue home Losartan 100 mg daily. Carvedilol 3.125 q12hr initiated for cardioprotection, patient is bradycardic so will not increase. We'll consider medication adjustment, possibly amlodipine Hydralazine 10 mg IV q6hr prn SBP >180 (5) Nutrition, metabolism, and development symptoms ICD Codes: R63.8 - Other symptoms and signs concerning food and fluid intake Status: Acute Plan: Fluids: PO hydration Electrolytes: wnl Nutrition: Heart healthy diet DVT ppx: S/P cath, on Ticagrelor, SCDs (Ally Greenwood MD R2) Problem Qualifiers (1) Pancreatitis: Qualified Codes: K86.1 - Other chronic pancreatitis (2) Community acquired pneumonia: Qualified Codes: J18.9 - Pneumonia, unspecified organism Ally Greenwood MD R2 Feb 14, 2017 10:29 Camille Krueger MD Feb 14, 2017 13:30
--- NOTE | 2017-02-14 10:47 | PD.CARD.PN ---
Subjective Subjective Remarks No CP or SOB, c/o mild abdominal pain likely related to pancreatitis Objective Medications Administered Medications Medications (Trade) Dose Ordered Sig/Lexi Route PRN Reason Start Time Stop Time Status Last Admin Dose Admin Sodium Chloride (NS Flush) 2 ml BID IV FLUSH 02/12/17 09:00 02/14/17 09:38 Senna/Docusate Sodium (Pilar-Colace) 1 tab BID PO 02/12/17 09:00 02/14/17 09:38 Morphine Sulfate (Morphine Inj) 4 mg Q3H PRN IV PUSH BREAKTHROUGH PAIN 02/12/17 09:00 02/14/17 09:39 Aspirin (Aspirin Chew) 81 mg DAILY CHEW 02/13/17 09:00 02/14/17 09:38 Losartan Potassium (Cozaar) 100 mg DAILY PO 02/12/17 09:00 02/14/17 08:10 Ceftriaxone Sodium 1000 mg/ Sodium Chloride 100 ml @ 200 mls/hr Q24H IV 02/12/17 09:00 02/14/17 09:36 Carvedilol (Coreg) 3.125 mg Q12HR PO 02/12/17 21:00 02/14/17 08:11 Atorvastatin Calcium (Lipitor) 80 mg HS PO 02/12/17 21:00 02/13/17 20:55 Ticagrelor (Brilinta) 90 mg BID PO 02/13/17 21:00 02/14/17 09:00 Doxycycline Hyclate (Vibramycin) 100 mg BID PO 02/13/17 21:00 02/14/17 09:37 Pantoprazole Sodium (Protonix) 40 mg DAILY PO 02/14/17 09:00 02/14/17 09:38 Vital Signs / I&O Vital Signs Date Time Temp Pulse Resp B/P (MAP) Pulse Ox O2 Delivery O2 Flow Rate FiO2 02/14/17 07:00 54 02/14/17 07:00 98.6 66 18 173/106 (128) 96 02/14/17 06:00 58 02/14/17 05:00 56 02/14/17 04:40 16 02/14/17 04:06 66 16 160/97 (118) 97 02/14/17 04:03 63 02/14/17 04:00 66 02/14/17 02:00 62 02/14/17 01:00 62 02/14/17 00:05 65 02/14/17 00:00 62 02/13/17 22:00 60 02/13/17 21:00 66 02/13/17 20:56 60 02/13/17 20:56 98.6 67 16 179/105 (129) 98 02/13/17 20:00 66 02/13/17 18:00 58 02/13/17 17:00 64 02/13/17 16:00 98.7 60 16 180/106 (130) 100 02/13/17 16:00 62 02/13/17 15:00 63 02/13/17 14:00 62 02/13/17 13:00 70 02/13/17 12:00 44 02/13/17 11:39 97.4 50 16 156/96 (116) 100 I/O 02/13/17 02/13/17 02/13/17 02/14/17 02/14/17 02/14/17 07:00 15:00 23:00 07:00 15:00 23:00 Intake Total 1738 ml 500 ml Output Total 400 ml 1125 ml 850 ml Balance 1338 ml -625 ml -850 ml Intake Oral 620 ml 500 ml IV Total 1118 ml Output Urine Total 400 ml 1125 ml 850 ml # Voids 2 # Bowel Movements 0 Physical Exam GENERAL: In NAD SKIN: Warm and dry. HEAD: Normocephalic. EYES: No scleral icterus. No injection or drainage. NECK: Supple, trachea midline. No JVD or lymphadenopathy. CARDIOVASCULAR: Regular rate and rhythm without murmurs, gallops, or rubs. RESPIRATORY: Breath sounds equal bilaterally. No accessory muscle use. GASTROINTESTINAL: Abdomen soft, non-tender, nondistended. MUSCULOSKELETAL: No cyanosis, or edema. Groin stable Laboratory Laboratory Tests Test 02/14/17 04:45 White Blood Count 7.2 TH/MM3 Red Blood Count 4.27 MIL/MM3 Hemoglobin 13.6 GM/DL Hematocrit 40.0 % Mean Corpuscular Volume 93.7 FL Mean Corpuscular Hemoglobin 31.9 PG Mean Corpuscular Hemoglobin Concent 34.0 % Red Cell Distribution Width 13.3 % Platelet Count 203 TH/MM3 Mean Platelet Volume 7.2 FL Neutrophils (%) (Auto) 48.9 % Lymphocytes (%) (Auto) 33.1 % Monocytes (%) (Auto) 14.5 % Eosinophils (%) (Auto) 2.4 % Basophils (%) (Auto) 1.1 % Neutrophils # (Auto) 3.5 TH/MM3 Lymphocytes # (Auto) 2.4 TH/MM3 Monocytes # (Auto) 1.0 TH/MM3 Eosinophils # (Auto) 0.2 TH/MM3 Basophils # (Auto) 0.1 TH/MM3 CBC Comment DIFF FINAL Differential Comment Activated Partial Thromboplast Time 28.7 SEC Blood Urea Nitrogen 11 MG/DL Creatinine 1.25 MG/DL Random Glucose 104 MG/DL Calcium Level 8.9 MG/DL Sodium Level 137 MEQ/L Potassium Level 4.1 MEQ/L Chloride Level 104 MEQ/L Carbon Dioxide Level 27.1 MEQ/L Anion Gap 6 MEQ/L Estimat Glomerular Filtration Rate 72 ML/MIN Total Creatine Kinase 170 U/L Creatine Kinase MB 2.7 NG/ML Triglycerides Level 79 MG/DL Cholesterol Level 132 MG/DL LDL Cholesterol 57 MG/DL HDL Cholesterol 59.5 MG/DL Cholesterol/HDL Ratio 2.21 RATIO Lipase 271 U/L Imaging Last 24 hours Impressions Chest X-Ray 02/14/17 0600 Signed Impressions: Service Date/Time: Tuesday, February 14, 2017 08:20 - CONCLUSION: No focal or segmental pneumonia identified. Stable compared to prior exam. Miguel Angel Vasquez MD Assessment and Plan Problem List: (1) Stented coronary artery ICD Codes: Z95.5 - Presence of coronary angioplasty implant and graft (2) NSTEMI (non-ST elevated myocardial infarction) ICD Codes: I21.4 - Non-ST elevation (NSTEMI) myocardial infarction Status: Acute (3) Second degree AV block, [place] type I ICD Codes: I44.1 - Second degree AV block, Mobitz type I Status: Acute (4) Bradycardia ICD Codes: R00.1 - Bradycardia Status: Acute (5) Hypertension ICD Codes: I10 - Hypertension Status: Chronic (6) Pancreatitis ICD Codes: K85.9 - Pancreatitis Status: Chronic Assessment and Plan No angina or CHF. Stable post PCI. Continue Brilinta and baby ASA, statin, beta precious. Continue tx for CHF including losartan, add amlodipine. OK to discharge from card standpoint. GI eval in progress. F/u w Dr. 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 Problem Qualifiers (1) Pancreatitis: Qualified Codes: K86.1 - Other chronic pancreatitis Rosalinda Kimball MD Feb 14, 2017 10:47
--- NOTE | 2017-02-14 14:21 | EKG ---
Date Performed: 02/14/2017 Time Performed: 05:36:36 PTAGE: 56 years EKG: Sinus bradycardia with borderline 1st degree A-V block Leftward axis Inferior infarct - age undetermined Anterolateral T wave changes are nonspecific Abnormal ECG PREVIOUS TRACING : 02/12/2017 15.48 DOCTOR: Willard Scott Interpretating Date/Time 02/14/2017 14:15:16
--- NOTE | 2017-02-14 16:41 | HHI.GIFU ---
GI Follow-up Note Consult Follow-up Subjective: Patient laying in bed comfortably, feeling great.Awaiting MRCP .Cardiac work-up completed.Denies nausea, vomiting , abdominal pain .Discussed about dietary and life style changes Objective: PHYSICAL EXAMINATION: Vitals signs stable No fever HEENT: Pupils round and reactive to light; normocephalic; atraumatic; no jaundice. Throat is clear. NECK: Neck is supple, no JVD, no lymphadenopathy. CHEST: Chest is clear to auscultation and percussion. CARDIAC: Regular rate and rhythm with no murmur gallop or rubs. ABDOMEN: Soft, nondistended, nontender; no hepatosplenomegaly; bowel sounds are present in all four quadrants. EXTREMITIES: No clubbing, cyanosis, or edema. SKIN: Normal; no rash; no jaundice. SKI TOPPER: No focal deficits; alert and oriented times three. Available Data (labs, X- Rays, Procedues) : Vital Signs Date Time Temp Pulse Resp B/P (MAP) Pulse Ox O2 Delivery O2 Flow Rate FiO2 02/14/17 16:00 51 02/14/17 15:00 97.7 62 18 164/94 (117) 96 02/14/17 15:00 52 02/14/17 14:07 52 02/14/17 13:00 54 02/14/17 12:00 60 02/14/17 11:00 98.5 57 18 177/106 (129) 97 02/14/17 11:00 62 02/14/17 10:00 66 02/14/17 09:00 56 ASSESSMENT/PLAN: Non STEMI -cardiac work-up completed , cleared for gi work-up Mild pancreatitis -clinically better-possible secondary ETOH mild dilated pancreatic duct -needs further evalution gallstone , fatty liver Recommendations MRCP today if negative ok to dc home from gi point avoid etoh, fatty foods fu gi in 2 weeks-he will see his gi doctor- It was a pleasure seeing Wei Jacob. Thank you for this consult. Entered by: Annia Ramirez MD Feb 14, 2017 16:41
--- NOTE | 2017-02-14 18:55 | RADRPT ---
EXAM DATE/TIME: 02/14/2017 18:20 [facility] COMPARISON: US ABDOMEN - GALLBLADDER, February 12, 2017, 12:08. CT ABDOMEN & PELVIS W/O CONTRAST, September 07, 2013, 19:45. INDICATIONS : Abdominal pain. MEDICAL HISTORY : Pancreatitis. Hypertension. Gastroesophageal reflux disease. OH with stents. SURGICAL HISTORY : Coronary artery stent. Cardiac cath with stents. ENCOUNTER: Initial ACUITY: 1 day PAIN SCORE: 3/10 LOCATION: Right upper quadrant TECHNIQUE: Multiplanar, multisequence magnetic resonance imaging of the abdomen was performed. High-resolution 3D dataset was utilized to reconstruct maximum-intensity projection (MIP) images. FINDINGS: INTRAHEPATIC BILE DUCTS: Within normal limits. No significant anatomical variant is present. EXTRAHEPATIC BILE DUCTS: The common bile duct measures 5 mm No stone or filling defect is identified. GALLBLADDER: No stones, wall thickening, or pericholecystic fluid. LIVER: Normal size and signal intensity. No concerning liver lesion is identified on this non-contrast exam. PANCREAS: The main pancreatic duct is normal in size. There is no significant anatomical variant. Signal inte nsity is within normal limits. No mass is visualized on this non-contrast exam. OTHER: The remaining visualized structures demonstrate no acute abnormality on this non-contrast exam. Mild aneurysmal dilatation of the infrarenal abdominal aorta to a diameter of 3.4 cm CONCLUSION: No acute findings Tony Bush MD on February 14, 2017 at 18:47 Board Certified Radiologist. This report was verified electronically.
[2017-02-14] MEDS: ATORVASTATIN 80 MG TAB PO SCH (20:58)
[2017-02-14] MEDS ORDERED: cloNIDine HCL 0.2 MG TAB PO ONE (22:30)
[2017-02-14] MEDS ORDERED: cloNIDine HCL 0.1 MG TAB PO PRN (22:30)
[2017-02-14] MEDS ORDERED: hydrALAZINE HCL 20 MG/ML VIAL IV PUSH PRN (22:45)
--- NOTE | 2017-02-14 22:47 | RADRPT ---
EXAM DATE/TIME: 02/14/2017 22:34 [facility] COMPARISON: CHEST SINGLE AP, February 12, 2017, 5:04. INDICATIONS : Chest pain. MEDICAL HISTORY : None. SURGICAL HISTORY : None. ENCOUNTER: Initial ACUITY: 3 days PAIN SCORE: 5/10 LOCATION: Bilateral chest FINDINGS: A single view of the chest demonstrates the lungs to be symmetrically aerated without evidence of mas s, infiltrate or effusion. The cardiomediastinal contours are unremarkable. Osseous structures are intact. CONCLUSION: Normal examination. Brennen Jalloh MD on February 14, 2017 at 22:45 Board Certified Radiologist. This report was verified electronically.
[2017-02-15] VITALS (9 sets, daily range): BP systolic 150–179; BP diastolic 90–106; PULSE 58–74; RESP 16–18; TEMP 97.4–98.6; O2SAT 97–99
[2017-02-15 05:29] LABS: AUTOMATED NEUTROPHIL # 4.2 TH/MM3 (1.8-7.7); BASOPHIL # 0.1 TH/MM3 (0-0.2); BASOPHIL % 1.2 % (0.0-2.0); EOSINOPHIL # 0.2 TH/MM3 (0-0.4); EOSINOPHIL % 2.2 % (0.0-4.0); HEMATOCRIT 41.9 % (39.0-51.0); HEMO FLAGS DIFF FINAL; LYMPHOCYTE # 2.1 TH/MM3 (1.0-4.8); MEAN CELL VOLUME 92.4 FL (80.0-100.0); MEAN CORPUSCULAR HEMOGLOBIN 31.3 PG (27.0-34.0); MEAN CORPUSCULAR HGB CONC 33.9 % (32.0-36.0); NEUT % 54.6 % (16.0-70.0); PLATELET COUNT 211 TH/MM3 (150-450); RED BLOOD COUNT 4.54 MIL/MM3 (4.50-5.90); RED CELL DISTRIBUTION WIDTH 12.9 % (11.6-17.2); WHITE BLOOD COUNT 7.7 TH/MM3 (4.0-11.0)
[2017-02-15 05:38] LABS: BICARBONATE 26.5 MEQ/L (21.0-32.0); POTASSIUM 3.6 MEQ/L (3.5-5.1)
[2017-02-15] MEDS: DOCUSATE SODIUM 50 MG/SENNA 8.6 MG TAB PO SCH (08:50)
[2017-02-15] MEDS: TICAGRELOR 90 MG TAB PO SCH (08:50)
[2017-02-15] MEDS: PANTOPRAZOLE SOD 40 MG DELAYED RELEASE TAB PO SCH (08:50)
[2017-02-15] MEDS: CARVEDILOL 3.125 MG TAB PO SCH (08:50)
[2017-02-15] MEDS: LOSARTAN 50 MG TAB PO SCH (08:50)
[2017-02-15] MEDS: ASPIRIN 81 MG CHEW TAB CHEW SCH (08:51)
[2017-02-15] MEDS: SODIUM CHLORIDE 0.9% FLUSH 10 ML FLUSH IV FLUSH SCH (08:51)
[2017-02-15] MEDS: cefTRIAXone INJ 1,000 MG in SODIUM CHLORIDE 0.9% INJ 100 ML IV SCH (09:00)
[2017-02-15] MEDS: DOXYCYCLINE HYCLATE 100 MG CAP PO SCH (09:44)
[2017-02-15] MEDS ORDERED: HYDR-3516 PO (09:48)
[2017-02-15] MEDS ORDERED: CARV3.125 PO (09:48)
[2017-02-15] MEDS ORDERED: ATOR1TAB18 PO (09:48)
[2017-02-15] MEDS ORDERED: BRIL90TA PO (09:48)
[2017-02-15] MEDS ORDERED: AMLO10 PO (09:48)
[2017-02-15] MEDS ORDERED: ASPI81CH25 CHEW (09:48)
[2017-02-15] MEDS ORDERED: DOXY100C PO (09:48)
--- NOTE | 2017-02-15 09:50 | HHI.DCPOC ---
Discharge Care Plan Diagnosis: (1) NSTEMI (non-ST elevated myocardial infarction) (2) Pancreatitis (3) Hyperlipidemia Goals to Promote Your Health * To prevent worsening of your condition and complications * To maintain your health at the optimal level Directions to Meet Your Goals Take your medications as prescribed Follow your dietary instruction Follow activity as directed Keep your appointments as scheduled Take your immunizations and boosters as scheduled If your symptoms worsen call your PCP, if no PCP go to Urgent Care Center or Emergency Room Smoking is Dangerous to Your Health. Avoid second hand smoke Call the 24-hour hour crisis hotline for domestic abuse at Archie Stark MD R1 Feb 15, 2017 09:50
--- NOTE | 2017-02-15 09:51 | HHI.DS ---
Discharge Summary Admission Date Feb 12, 2017 at 06:38 Admitting Diagnosis chest pain, pancreatitis (1) NSTEMI (non-ST elevated myocardial infarction) Diagnosis: Principal Plan: Patient presented with acute onset chest pain with initial troponin within normal limits, second and third troponins indicative of cardiac ischemia. EKG changes noted on 02/12 included T-wave inversions and non- contiguous ST depressions. Cardiology consulted Patient is status post heparinization 02/12, catheterization 02/13 with stenting Chest pain has improved Plan: Medication management per cardiology included heparin, Aggrenox, carvedilol, statin, aspirin, close monitoring Continued management includes ticagrelor initiated 02/13, aspirin, statin, beta precious Awaiting cardiology clearance Continue to monitor surgical site ICD Codes: I21.4 - Non-ST elevation (NSTEMI) myocardial infarction Status: Acute (2) Pancreatitis Diagnosis: Principal Plan: Lipase on admission 469, decreased to 270s US showed pancreatic duct dilation to 5 mm, multiple large gallstones IVF hydration with NS at 160 cc/hr, DC'd today given hypertension, will monitor enzymes Patient states his pain has improved but he is still receiving morphine ( initially ordered at admission). No other pain medication ordered. * Will switch pain regiment to Tylenol PRN Pain 1-2, [place] 5-325mg PRN Pain 3-5 , [place] 7.55-325mg PRN Pain 6-10, Morphine 4 mg IV q3h prn breakthrough Consider MRCP following cardio clearance after catheterization continue protonix ICD Codes: K85.9 - Pancreatitis Status: Chronic (3) Community acquired pneumonia Diagnosis: Principal Plan: Patient is asymptomatic CXR 02/12 showing mild mid right lung and left basilar pulmonary infiltrates Repeat CXR PA and lateral today showing no signs of pneumonia but there is evidence of pulmonary edema DC IV fluids as noted above Patient is currently on Rocephin 1g IV daily (02/12 - ) and doxycycline 100mg PO BID (02/13 - ). Plan to continue treatment for CAP this time. Avoiding macrolides given cardiac history and borderline prolonged QTc Continue to monitor WBC and vitals ICD Codes: J18.9 - Pneumonia, unspecified organism Status: Acute (4) Hypertension Diagnosis: Secondary Plan: BP on admission 241/124, with last BP over last 24 hours 180/106. Asymptomatic. Continue home Losartan 100 mg daily. Carvedilol 3.125 q12hr initiated for cardioprotection, patient is bradycardic so will not increase. We'll consider medication adjustment, possibly amlodipine Hydralazine 10 mg IV q6hr prn SBP >180 ICD Codes: I10 - Hypertension Status: Chronic (5) Nutrition, metabolism, and development symptoms Plan: Fluids: PO hydration Electrolytes: wnl Nutrition: Heart healthy diet DVT ppx: S/P cath, on Ticagrelor, SCDs ICD Codes: R63.8 - Other symptoms and signs concerning food and fluid intake Status: Acute Procedures Cardiac catheterization 02/13 Brief History Very pleasant 56 year old man with PMH significant for CAD s/p RCA and LCx stent placement in 2013, HTN, and pancreatitis x2 prior episodes presents to the ED with complaints of chest pain. He states around 1 AM this morning he started having a headache and took 2 BC powders. Around 4 AM he states he started having chest pain. He states his chest pain is centrally located on his chest, does radiate to his left arm, and describes it as a crushing pain. He denies any SOB. Denies pain being pleuritic. He states this chest pain feels similar to his pain during his previous hospital admission when he had his stents placed. His chest pain was initially a 10/10 and he states he did not have any relief until he was given the 2nd dose of IV morphine 4 mg here in the ED. His chest pain is currently at a 5/10. He states he believes the nitro ointment did not help his chest pain. He states the headache he had this morning was not significantly worse than his usual headaches. He denies abdominal pain. He does endorse some radiating pain he states to his scapulas bilaterally. He denies any recent fevers or chills. Denies cough. He states he vomited once here in the ED prior to receiving Zofran and now feels better. Emesis was clear and white, appearing to be cereal he recently ate. Denies bilious or blood in emesis. Denies diarrhea, blood in urine or stools. He does endorse some constipation recently but has been able to have a BM within the last two days or so and is passing flatus. CBC/BMP: 02/15/17 0504 02/15/17 0504 Significant Findings Laboratory Tests Test 02/12/17 14:09 02/12/17 16:10 02/12/17 17:30 02/12/17 22:42 Aspartate Amino Transf (AST/SGOT) 48 U/L (15-37) 56 U/L (15-37) Troponin I 15.00 NG/ML (0.02-0.05) 20.70 NG/ML (0.02-0.05) Albumin 3.3 GM/DL (3.4-5.0) 3.3 GM/DL (3.4-5.0) Urine Opiates Screen POS (NEG) Red Blood Count 4.25 MIL/MM3 (4.50-5.90) 4.13 MIL/MM3 (4.50-5.90) Estimat Glomerular Filtration Rate 75 ML/MIN (>89) Total Creatine Kinase 383 U/L (39-308) Creatine Kinase MB 35.6 NG/ML (0.5-3.6) Creatine Kinase MB % 9.3 % (0.0-4.0) Hematocrit 38.8 % (39.0-51.0) Monocytes (%) (Auto) 10.1 % (0.0-8.0) Monocytes # (Auto) 1.0 TH/MM3 (0-0.9) Activated Partial Thromboplast Time 61.2 SEC (24.3-30.1) Test 02/13/17 04:58 02/14/17 04:45 02/14/17 23:02 02/15/17 05:04 Red Blood Count 4.05 MIL/MM3 (4.50-5.90) 4.27 MIL/MM3 (4.50-5.90) Hemoglobin 12.9 GM/DL (13.0-17.0) Hematocrit 37.9 % (39.0-51.0) Monocytes (%) (Auto) 12.3 % (0.0-8.0) 14.5 % (0.0-8.0) 15.0 % (0.0-8.0) Monocytes # (Auto) 1.0 TH/MM3 (0-0.9) 1.0 TH/MM3 (0-0.9) 1.2 TH/MM3 (0-0.9) Activated Partial Thromboplast Time 55.6 SEC (24.3-30.1) Total Protein 6.3 GM/DL (6.4-8.2) Albumin 3.0 GM/DL (3.4-5.0) Aspartate Amino Transf (AST/SGOT) 47 U/L (15-37) Chloride Level 109 MEQ/L (98-107) Estimat Glomerular Filtration Rate 74 ML/MIN (>89) 72 ML/MIN (>89) 83 ML/MIN (>89) Troponin I 2.64 NG/ML (0.02-0.05) 2.42 NG/ML (0.02-0.05) PE at Discharge GENERAL: Well-nourished, well-developed Rina male who is pleasant and in no apparent distress. SKIN: Warm and dry. No rashes or ecchymoses. Right groin is examined and noted to have a gauze and clear tape dressing. There is some blood on it but no active bleeding. The site is mildly tender but no hematoma or infection noted. HEAD: Atraumatic. Normocephalic. EYES: PERRLA. EOMI. No conjunctival pallor. No scleral icterus. ENT: No nasal bleeding or discharge. Mucous membranes pink and moist. NECK: Trachea midline. No JVD. CARDIOVASCULAR: Regular rhythm. Bradycardia to 60s noted on telemetry. No murmurs, rubs, gallops auscultated. RESPIRATORY: No accessory muscle use. Clear to auscultation. Breath sounds equal bilaterally. GASTROINTESTINAL: Abdomen soft, non-tender, nondistended. Bowel sounds are normal. Hepatic and splenic margins not palpable. MUSCULOSKELETAL: Extremities without clubbing, cyanosis, or edema. No obvious deformities. NEUROLOGICAL: Awake and alert. Cranial nerves II through XII intact. He is walking without difficulty. Normal strength. Normal speech. PSYCHIATRIC: Appropriate mood and affect; insight and judgment normal. Hospital Course A she was admitted 02/12 for an NSTEMI. Patient was catheterized 02/13 with successful angioplasty and stenting of the distal right coronary artery, mid right coronary artery, proximal portion of the right posterior descending artery. Patient had one more case of chest pain at night prior to discharge. Likely anxiety provoked. Chest x-ray 02/12 showed mild mid right lung and left basilar pulmonary infiltrates. Patient received Rocephin 1 g daily 02/12 until discharge and OxyContin cycle in 100 g by mouth twice a day 02/13 until discharge. Lipase was also elevated at 469 with abdominal pain on admission. Patient noted this to be typical pancreatitis-type symptoms. Conservatively treated during admission. At discharge it had partially resolved and patient noted that he has had no issues with pain at this level while home. Pt Condition on Discharge: Stable Discharge Instructions DIET: Follow Instructions for: Heart Healthy Diet Follow up Referrals: Cardiology - 1 Week with Jake Crowley MD Gastroenterology - 1 Week with Valerio Linn M.d. PCP Follow-up - 1 Week New Medications: Amlodipine (Norvasc) 10 Mg Tab 10 MG PO DAILY for 30 Days, #30 TAB Aspirin (Aspirin Low Strength) 81 Mg Chew 81 MG CHEW DAILY for 30 Days, #30 EA Atorvastatin (Atorvastatin) 80 Mg Tab 80 MG PO HS for 30 Days, #30 TAB Carvedilol (Coreg) 3.125 Mg Tab 3.125 MG PO Q12HR for 30 Days, #60 TAB Doxycycline Hyclate (Doxycycline Hyclate) 100 Mg Cap 100 MG PO BID for 2 Days, #4 CAP Hydrocodone-Acetaminophen (Hydrocodone-Acetaminophen) 5-325 mg Tab 1 TAB PO Q4H PRN for PAIN SCALE 3 TO 5 for 2 Days, #12 TAB Ticagrelor (Brilinta) 90 Mg Tab 90 MG PO BID for 30 Days, #60 TAB Continued Medications: Losartan (Losartan) 100 Mg Tab 100 MG PO DAILY for Blood Pressure Management, #30 TAB 0 Refills Omeprazole Magnesium (Prilosec) 20 Mg Tab 1 TAB PO DAILY PRN for REFLUX Sildenafil (Viagra) 25 Mg Tab 25 MG PO DAILY PRN for ERECTILE DYSFUNCTION, TAB 0 Refills Archie Stark MD R1 Feb 15, 2017 09:51
--- NOTE | 2017-02-15 09:52 | HHI.FPPN ---
Subjective Remarks Patient seen and examined this morning. He states he had some difficulty breathing yesterday evening, but he believes is because of "everything going on. " He states he believes he was going home so he did have not any dinner. He was also seen "later in the day" by the physicians. All this including having his medication on an empty stomach he believes he just became very anxious. No problems this morning. No chest pain, shortness of breath, palpitations, change in bowel or bladder habits. He notes some continuing abdominal pain which is better than yesterday. He states it is a similar pain to when he had pancreatitis in the past, he has been able to go home in the past with this pain and have it resolve on its own. He is very eager to go home today. (Archie Stark MD R1) Objective Vitals Vital Signs Date Time Temp Pulse Resp B/P (MAP) Pulse Ox O2 Delivery O2 Flow Rate FiO2 02/15/17 08:31 97 21 02/15/17 05:17 61 02/15/17 04:24 59 02/15/17 03:21 98.2 74 16 150/90 (110) 97 02/15/17 03:00 63 02/15/17 02:15 62 02/15/17 01:00 58 02/15/17 00:44 98.6 62 16 179/106 (130) 99 02/15/17 00:44 72 02/14/17 22:00 58 02/14/17 21:00 62 02/14/17 20:00 70 02/14/17 19:00 69 02/14/17 19:00 97.9 60 18 184/109 (134) 99 02/14/17 17:00 54 02/14/17 16:00 51 02/14/17 15:00 97.7 62 18 164/94 (117) 96 02/14/17 15:00 52 02/14/17 14:07 52 02/14/17 13:00 54 02/14/17 12:00 60 02/14/17 11:00 98.5 57 18 177/106 (129) 97 02/14/17 11:00 62 02/14/17 10:00 66 I/O 02/14/17 02/14/17 02/14/17 02/15/17 02/15/17 02/15/17 07:00 15:00 23:00 07:00 15:00 23:00 Intake Total 100 ml 1300 ml 480 ml Output Total 850 ml 1000 ml 1275 ml Balance -750 ml 300 ml -795 ml Intake Oral 1200 ml 480 ml IV Total 100 ml 100 ml Output Urine Total 850 ml 1000 ml 1275 ml # Bowel Movements 0 (Archie Stark MD R1) Result Diagram: 02/15/17 0504 02/15/17 0504 Objective Remarks GENERAL: Well-nourished, well-developed Rina male who is pleasant and in no apparent distress. SKIN: Warm and dry. No rashes or ecchymoses. Right groin is examined and noted to have a gauze and clear tape dressing. There is some blood on it but no active bleeding. The site is mildly tender but no hematoma or infection noted. HEAD: Atraumatic. Normocephalic. EYES: PERRLA. EOMI. No conjunctival pallor. No scleral icterus. ENT: No nasal bleeding or discharge. Mucous membranes pink and moist. NECK: Trachea midline. No JVD. CARDIOVASCULAR: Regular rhythm. Rate in the 60s. No murmurs, rubs, gallops auscultated. RESPIRATORY: No accessory muscle use. Clear to auscultation. Breath sounds equal bilaterally. GASTROINTESTINAL: Abdomen soft, non-tender, nondistended. Bowel sounds are normal. Hepatic and splenic margins not palpable. MUSCULOSKELETAL: Extremities without clubbing, cyanosis, or edema. No obvious deformities. NEUROLOGICAL: Awake and alert.He is walking without difficulty. Normal strength. Normal speech. PSYCHIATRIC: Appropriate mood and affect; insight and judgment normal. Procedures Cardiac catheterization 02/13 (Archie Stark MD R1) A/P Assessment and Plan 56 year old man being admitted for ACS rule out and treatment of pancreatitis. Also found to have mild right mid lung and left basilar infiltrates on CXR. Cardiac catheterization with stent placement. Pancreatitis resolving. Discharge Planning Today (Archie Stark MD R1) Attending Attestation Patient seen and examined with Dr. Stark. Case reviewed and discussed Agree with plan of care as discussed with me and documented in the resident note. (Camille Krueger MD) Problem List: (1) NSTEMI (non-ST elevated myocardial infarction) ICD Codes: I21.4 - Non-ST elevation (NSTEMI) myocardial infarction Status: Acute Plan: Patient presented with acute onset chest pain with initial troponin within normal limits, second and third troponins indicative of cardiac ischemia. EKG changes noted on 02/12 included T-wave inversions and non- contiguous ST depressions. Cardiology consulted Patient is status post heparinization 02/12, catheterization 02/13 with stenting Chest pain has improved Plan: Medication management per cardiology included heparin, Aggrenox, carvedilol, statin, aspirin, close monitoring Continued management includes ticagrelor initiated 02/13, aspirin, statin, beta precious Cleared from cardiology Continue to monitor surgical site (2) Pancreatitis ICD Codes: K85.9 - Pancreatitis Status: Chronic Plan: Lipase on admission 469, decreased to 270s US showed pancreatic duct dilation to 5 mm, multiple large gallstones IVF hydration with NS at 160 cc/hr, DC'd yesterday given hypertension, will monitor enzymes Patient states his pain has improved but he is still receiving morphine ( initially ordered at admission). No other pain medication ordered. * pain regimen Tylenol PRN Pain 1-2, [place] 5-325mg PRN Pain 3-5, [place] 7.55- 325mg PRN Pain 6-10, Morphine 4 mg IV q3h prn breakthrough MRCP with no acute findings. Notes his current abdominal pain is similar to pancreatic pain in the past, it typically is self resolving at this point. continue protonix (3) Community acquired pneumonia ICD Codes: J18.9 - Pneumonia, unspecified organism Status: Acute Plan: Patient is asymptomatic CXR 02/12 showing mild mid right lung and left basilar pulmonary infiltrates Repeat CXR PA and lateral today showing no signs of pneumonia but there is evidence of pulmonary edema DC IV fluids as noted above Patient is currently on Rocephin 1g IV daily (02/12 - ) and doxycycline 100mg PO BID (02/13 - ). Plan to continue treatment for CAP this time. Avoiding macrolides given cardiac history and borderline prolonged QTc Continue to monitor WBC and vitals (4) Hypertension ICD Codes: I10 - Hypertension Status: Chronic Plan: BP on admission 241/124, with last BP over last 24 hours 180/106. Asymptomatic. Continue home Losartan 100 mg daily. Carvedilol 3.125 q12hr initiated for cardioprotection, patient is bradycardic so will not increase. We'll consider medication adjustment, possibly amlodipine Hydralazine 10 mg IV q6hr prn SBP >180 (5) Anxiety about health ICD Codes: F41.8 - Other specified anxiety disorders Plan: Patient had increased respiratory effort yesterday. Attributes it to concerns about missing dinner, being seen by physicians later in the day, taking his medication on a stomach. -Troponins downtrending -Chest x-ray improved from admission -Normal respirations today -Single occurrence, will not consider anxiolytics at this time. Appropriate follow-up outpatient unless further episodes inpatient. (6) Nutrition, metabolism, and development symptoms ICD Codes: R63.8 - Other symptoms and signs concerning food and fluid intake Status: Acute Plan: Fluids: PO hydration Electrolytes: wnl Nutrition: Heart healthy diet DVT ppx: S/P cath, on Ticagrelor, SCDs (Archie Stark MD R1) Problem Qualifiers (1) Pancreatitis: Qualified Codes: K86.1 - Other chronic pancreatitis (2) Community acquired pneumonia: Qualified Codes: J18.9 - Pneumonia, unspecified organism Archie Stark MD R1 Feb 15, 2017 09:52 Camille Krueger MD Feb 16, 2017 12:21
--- NOTE | 2017-02-15 10:32 | HHI.FPPN ---
Addendum to progress note ADDENDUM Reason for addendum: Additonal documentation Additional information Documentation delayed due to unscheduled EMR downtime. Patient is a 56-year-old -[place] male who was hospitalized 2 days ago with NSTEMI and workup for chronic pancreatitis. Patient is s/p cardiac cath and stent placement on February 13, 2017. Patient had MRCP performed today (02/14) ; results normal. Resident team was paged with regard to possible discharge of patient, respiratory changes and elevated blood pressure around 21:45 on 02/14. Plan for discharge of patient was discussed; medicine team felt that patient would benefit from an additional night of observation with discharge in the morning assuming patients condition was stable. Nurse informed resident team that patient was experiencing shortness of breath; O2 sats: 99% on room air. Patient denied chest pain or heart palpitations. Patient denied feeling anxious. Nurse also informed resident team about recent systolic pressure of 194. Subjective: Upon arrival at patients bedside, patient did not appear to have trouble/ labored breathing. He was able to speak in complete sentences. and patient however were very upset about nursing care this evening. Patient was also questioning medication he had received prior to episode of respiratory distress. Patient reported feelings of pressure but denied chest pain. Patient denied heart palpitations. Patient denied feeling anxious. Objective: Cardiac: Normal rate and rhythm. Respiratory: Non-labored breathing. Breath sounds equal bilaterally. Slight crackles heard in lower lung chavarria bilaterally. Extremities: No lower extremity edema appreciated. No calf tenderness. Assessment and Plan: Differential diagnosis: SC versus anxiety versus medication reaction versus atelectasis versus chronic pancreatitis STAT chest x-ray - no acute findings. STAT EKG; serial EKGs to follow - unchanged from prior EKG. STAT troponin; serial troponin to follow - high but significantly lower than at admission; trending downward. STAT BNP - wnl. STAT lipase - wnl. Monitor vitals closely. Monitor respiratory status closely. Clonidine 2 mg once. Clonidine 1 mg q1hr PRN systolic pressure above 180. Abeba Mccallum MD R1 Feb 15, 2017 10:32
--- NOTE | 2017-02-16 12:34 | EKG ---
Date Performed: 02/14/2017 Time Performed: 22:39:08 PTAGE: 56 years EKG: Sinus rhythm Left axis deviation Inferior infarct - age undetermined Abnormal ECG Compared to prior tracing no si gnificant change PREVIOUS TRACING : 02/14/2017 05.36 DOCTOR: Jake Greenwood Interpretating Date/Time 02/16/2017 12:29:31
--- NOTE | 2017-02-16 12:35 | EKG ---
Date Performed: 02/15/2017 Time Performed: 05:15:40 PTAGE: 56 years EKG: Sinus rhythm with borderline 1st degree A-V block Leftward axis Inferior infarct - age undetermined Abnormal ECG Compared to prior tracing no significant change PREVIOUS TRACING : 02/14/2017 22.39 DOCTOR: Jake Greenwood Interpretating Date/Time 02/16/2017 12:29:40
== END 2017-02-15 10:28 | disposition home or self-care (01) | DRG 246 ==
LOC: NEPE 04:35 → NEDA 06:38 → N04B 13:07 → HCIN 19:35
PROVIDERS: ADMIT Family Medicine; ATTEND Family Medicine
PROC: 4A023N7 Measurement of Cardiac Sampling and Pressure, Left Heart, Percutaneous Approach (ICD-10-PCS; 2017-02-13)
PROC: B2111ZZ Fluoroscopy of Multiple Coronary Arteries using Low Osmolar Contrast (ICD-10-PCS; 2017-02-13)
PROC: B2151ZZ Fluoroscopy of Left Heart using Low Osmolar Contrast (ICD-10-PCS; 2017-02-13)
PROC: 027136Z Dilation of Coronary Artery, Two Arteries with Three Drug-eluting Intraluminal Devices, Percutaneous Approach (ICD-10-PCS; principal; 2017-02-13 09:45)
DX: I21.4 Non-ST elevation (NSTEMI) myocardial infarction (principal); J18.9 Pneumonia, unspecified organism; K86.1 Other chronic pancreatitis; I44.1 Atrioventricular block, second degree; I25.119 Atherosclerotic heart disease of native coronary artery with unspecified angina pectoris; Z95.5 Presence of coronary angioplasty implant and graft; I10 Essential (primary) hypertension; F17.290 Nicotine dependence, other tobacco product, uncomplicated; K80.20 Calculus of gallbladder without cholecystitis without obstruction; Z82.49 Family history of ischemic heart disease and other diseases of the circulatory system; Z83.3 Family history of diabetes mellitus; Z80.3 Family history of malignant neoplasm of breast; E78.5 Hyperlipidemia, unspecified; I16.0 Hypertensive urgency; F41.9 Anxiety disorder, unspecified; F10.20 Alcohol dependence, uncomplicated
CPT/HCPCS: 71010; 71020; 74181; 76377; 76705; 80048; 80053; 80061; 80076; 80307; 81001; 82550; 82552; 82565; 82948; 83690; 83735; 83880; 84100; 84484; 85002; 85025; 85027; 85610; 85730; 92928; 93005; 93458; 96374; 96375; 96376; C1725; C1760; C1769; C1874; C1887; C1893; C9113; G0269; J0360; J0696; J1644; J2250; J2270; J2405; J3010; J3246; J7030